=== PATIENT | female | born 1965 | race Caucasian/White ===

== ENCOUNTER 2019-12-09 09:33 | Emergency (ER) | payer BC, SELFPAY ==
[2019-12-09 09:51] VITALS: BP 137/86; PULSE 67; RESP 18; TEMP 37.1; O2SAT 100
--- NOTE | 2019-12-09 10:13 | ED.URI ---
HPI - URI/Sore Throat General Chief Complaint: Upper Respiratory Infection Stated Complaint: COUGH/EYE REDNESS/DRAINAGE/CHEST CONGESTION Time Seen by Provider: 12/09/19 10:13 Source: patient Mode of arrival: ambulatory Limitations: no limitations History of Present Illness HPI Narrative: A 54 y/o female, who is a nonsmoker/nondrinker, presents to with c/o left eye discharge for 2 days. Pt notes that she was recently taking care of one of her grandkids who tested positive for RSV. Pt does not wear contact lenses. Pt also c/o a cough with green mucous for 7 days. Pt has taken Aleve and Benadryl. She reports sinus congestion, a right earache, and sneezing, but denies a fever, a wheeze, edema, CP, and light sensitivity. Onset (ago): day(s) (2) Related Data Home Medications Medication Instructions Recorded Confirmed naproxen [Naprosyn] 500 mg PO BID 12/09/19 12/09/19 Allergies Allergy/AdvReac Type Severity Reaction Status Date / Time sulfamethoxazole Allergy Mild Hives Unverified 12/09/19 09:50 trimethoprim Allergy Mild Hives Unverified 12/09/19 09:50 Sulfa (Sulfonamide Allergy Unknown Hives Verified 12/09/19 09:50 Antibiotics) Review of Systems Review of Systems: Narrative: The patient has been informed that they may have pre-hypertension or Hypertension based on a BP reading in the department. I recommend that the patient call the primary care provider listed on their discharge instructions or a physician of their choice this week to arrange follow up for further evaluation of possible pre-hypertension or Hypertension General/Constitutional: Denies: weight loss,fever Eyes: Reports: left eye discharge; Denies: light sensitivity Ears/Nose/Throat: Reports: sinus congestion, right earache, sneezing; Denies: Epistaxis,ear discharge Respiratory: Reports: cough with green mucous; Denies: Hemoptysis, wheeze Cardiovascular: Denies: edema, CP Gastrointestinal: Denies: Vomiting, Bleeding-rectal Skin: Denies: Lumps, eruption Neurologic: Denies: Focal Weakness,Sz Hematologic: Denies: Petechiae/Purpura Psychiatric: Denies: Suicidal ideation All systems reviewed & are unremarkable except as noted in HPI and below [facility] Past Medical History Medical History (Updated 12/09/19 @ 10:28 by Kourtney Dougherty) Fibromyalgia Hypothyroid Left wrist fracture PVC (premature ventricular contraction) Surgical History Surgical History (Updated 12/09/19 @ 10:28 by Kourtney Dougherty) H/O tubal ligation Previous section Family History Family History Mother Hypertension Sibling Hypertension Family history of malignant neoplasm of breast in first degree relative Father Family history of human immunodeficiency virus infection, Onset Age: 52 Patient's father is Grandparent Diabetes mellitus Social History Social History Smoking status: Never smoker Alcohol intake: never Comments PCP: Dr. Logan At time of signature, agree with nursing past medical, surgical, social and family history. There is no relevant family history pertinent to the presenting complaint Exam Narrative: Exam Narrative: General Appearance: Well appearing, Well nourished EYE: PERRLA, R Conjunctiva clear, L sl inflamed Ears: Auditory canal normal, TM normal Nose: Rhinorrhea, Mucousal erythema Mouth/Throat: MM moist, Uvula midline, Pharyngeal erythema Neck: Supple, No adenopathy Respiratory: No respiratory distress, Breath sounds equal, Clear to auscultation Cardiovascular: RRR, No JVD Musculoskeletal: Non tender, Normal strength Skin: Warm, Dry Neurological: A&O x3, CN II-XII intact Psychiatric: Normal mood, Normal affect Course Vital Signs Vital signs: Vital Signs Temperature 98.8 F 12/09/19 09:51 Pulse Rate 67 12/09/19 09:51 Respiratory Rate 18 12/09/19 09:51 Blood Pressur
== END 2019-12-09 10:31 | disposition home or self-care (01) ==
PROVIDERS: Emergency Provider Emergency Medicine; PCP Family Medicine
DX: H10.32 Unspecified acute conjunctivitis, left eye (principal); M79.7 Fibromyalgia; E03.9 Hypothyroidism, unspecified
CPT/HCPCS: 87804; 99213; G0463

== ENCOUNTER 2021-07-15 11:23 | Emergency (ER) | payer BC, SELFPAY ==
--- NOTE | 2021-07-15 11:30 | ED.SKABFB ---
HPI - Skin/Abscess/Foreign Bdy General Chief complaint: Extremity Problem,Nontraumatic Stated complaint: lt big toe pos infection Time Seen by Provider: 07/15/21 11:30 Source: patient and RN notes reviewed History of Present Illness HPI narrative: Patient is a 56-year-old female who presents the urgent care with complaints of pain to the left great toe. Patient states she stubbed it approximately 5 days ago and it has been draining with increased redness and pain. Patient states that she has soaked the toe and soap and water and has placed ice on the toe. Patient denies fever, chills, nausea, vomiting. No other acute complaints. No acute distress noted. Patient aware of the plan of care. Some parts of this dictation were generated by voice recognition software and may contain typographical and/or grammatical inaccuracies. Related Data Allergies Allergy/AdvReac Type Severity Reaction Status Date / Time sulfamethoxazole Allergy Mild Hives Unverified 12/09/19 09:50 trimethoprim Allergy Mild Hives Unverified 12/09/19 09:50 Sulfa (Sulfonamide Allergy Unknown Hives Verified 12/09/19 09:50 Antibiotics) Review of Systems Review of Systems: CONSTITUTIONAL: Denies fever, chills, or sweats. EYES: Denies visual changes, redness, or discharge. ENT: Denies rhinorrhea, congestion, sore throat, or otalgia. CARDIOVASCULAR: Denies chest pain, palpitations, or edema. RESPIRATORY: Denies cough or dyspnea. GASTROINTESTINAL: Denies abdominal pain, nausea, vomiting, or diarrhea. GENITOURINARY: Denies dysuria or hematuria. SKIN: Reports of redness and swelling to the left great toe MUSCULOSKELETAL: Denies back pain, joint pain, or myalgia. NEUROLOGIC: Denies headache, numbness, or weakness. All other systems reviewed are negative, except as documented in HPI. [facility] Past Medical History Medical History (Updated 07/15/21 @ 12:03 by CASI Manriquez) Fibromyalgia Hypothyroid Left wrist fracture PVC (premature ventricular contraction) Surgical History Surgical History (Updated 12/09/19 @ 10:28 by Kourtney Dougherty) H/O tubal ligation Previous section Family History Family History Mother Hypertension Sibling Hypertension Family history of malignant neoplasm of breast in first degree relative Father Family history of human immunodeficiency virus infection, Onset Age: 52 Patient's father is Grandparent Diabetes mellitus Social History Social History Smoking status: Never smoker Alcohol intake: never Comments At the time of my signature, I reviewed and agree with the nursing past medical, surgical, social, and family history. There is no relevant family history pertinent to the patient complaint. Exam Narrative: GENERAL: This is a well-nourished, well-developed patient, in no apparent distress. HEAD: normocephalic, atraumatic. EYES: PERRL. Sclera clear/white. Vision is grossly intact. EARS: External ears normal NOSE: External nose normal with no obvious nasal discharge, nares without redness, no rhinorrhea. THROAT: Mucous membranes moist NECK: Neck supple CARDIOVASCULAR: Regular rate and rhythm without murmurs, gallops, or rubs. RESPIRATORY: Clear to auscultation. Breath sounds equal bilaterally. No wheezes, rales, or rhonchi. SKIN: Draining paronychia with surrounding erythema to the medial aspect of the left great toe with moderate tenderness NEURO: awake, alert, and oriented to person, place and time. There were no obvious focal neurologic abnormalities. EXTREMITIES: No clubbing, cyanosis, or edema. Course Vital Signs Vital signs: Vital Signs Temperature 98.5 F 07/15/21 11:33 Pulse Rate 83 07/15/21 11:33 Respiratory Rate 16 07/15/21 11:33 Blood Pressure 141/87 H 07/15/21 11:33 Pulse Oximetry 99 07/15/21 11:33 Temperature 98.5 F 07/15/21 11:33 Pulse Rate
[2021-07-15 11:33] VITALS: BP 141/87; PULSE 83; RESP 16; TEMP 36.9; O2SAT 99
== END 2021-07-15 12:10 | disposition home or self-care (01) ==
PROVIDERS: Emergency Provider Nurse Practitioner Family
DX: L03.032 Cellulitis of left toe (principal); M79.7 Fibromyalgia; E03.9 Hypothyroidism, unspecified
CPT/HCPCS: 99213; G0463

== ENCOUNTER 2022-11-10 19:35 | Emergency (ER) | payer BC, SELFPAY ==
--- NOTE | ~2022-11-10 | XR_ITS ---
EXAM: XR foot RT 2V DATE: 11/10/2022 20:32 HISTORY: Pain, blunt trauma to R.5th toe . COMPARISON: 06/08/2014. FINDINGS: Normal mineralization. Mildly displaced oblique fracture of the distal aspect of the right fifth proximal phalange, with possible intra-articular extension. No lytic or blastic lesion. Joint spaces are maintained. No erosion or periosteal change. Soft tissues within normal limits. IMPRESSION: Mildly displaced oblique fracture of the distal aspect of the right fifth proximal phalan ge, with possible intra-articular extension. Reviewed, dictated and finalized at location K. ELING ACCOUNTANT IMPRESSION: Mildly displaced oblique fracture of the distal aspect of the right fifth proximal phalange, with possible intra-articular extension.
[2022-11-10 19:55] VITALS: BP 150/90; PULSE 89; RESP 16; TEMP 36.9; O2SAT 97
--- NOTE | 2022-11-10 21:18 | ED.LOWEXIN ---
HPI - Extremity Injury (Lower) General Chief Complaint: Extremity Injury, Lower Stated Complaint: toe injury Time Seen by Provider: 11/10/22 20:51 Source: patient Mode of arrival: ambulatory Limitations: no limitations History of Present Illness HPI Narrative: 57-year-old otherwise healthy here with complaints of right foot pain. She states that she stubbed her foot against her bone few hours ago. complaint: foot injury Onset (ago): hour(s) (2) Type of Injury: blunt Place: home Severity: moderate Relieving factors: rest Exacerbating factors: weight bearing Context: direct blow Associated symptoms: swelling Related Data Allergies Allergy/AdvReac Type Severity Reaction Status Date / Time sulfamethoxazole Allergy Mild Hives Verified 11/10/22 20:52 trimethoprim Allergy Mild Hives Verified 11/10/22 20:52 Sulfa (Sulfonamide Allergy Unknown Hives Verified 11/10/22 20:52 Antibiotics) Review of Systems Review of Systems: All systems reviewed & are unremarkable except as noted in HPI and below Constitutional: Constitutional: Reports no additional constitutional complaints Eyes: Eyes: Reports no additional eye complaints ENT: Reports system reviewed and no additional complaints, except as documented Cardiovascular: Cardiovascular: Reports no additional cardiovascular complaints Respiratory: Respiratory: Reports no additional respiratory complaints Gastrointestinal: Gastrointestinal: Reports no additional gastrointestinal complaints Musculoskeletal: Musculoskeletal: Reports as per HPI Integumentary/Breasts: Skin/Breast: Reports system reviewed and no additional complaints, except as docu PMF[facility] Past Medical History Medical History Fibromyalgia Hypothyroid Left wrist fracture PVC (premature ventricular contraction) Surgical History Surgical History H/O tubal ligation Previous section Family History Family History Mother Hypertension Sibling Hypertension Family history of malignant neoplasm of breast in first degree relative Father Family history of human immunodeficiency virus infection, Onset Age: 52 Patient's father is Grandparent Diabetes mellitus Social History Social History Smoking status: Never smoker Alcohol intake: never Exam Narrative: GENERAL: Well-appearing, well-nourished, and in no acute distress. HEAD: Normocephalic, atraumatic. EYES: PERRLA and EOMI. NECK: Supple. CHEST: Clear to auscultation. No respiratory distress. HEART: Regular rate and rhythm. No murmur heard. Normal peripheral pulses. EXTREMITIES: Normal range of motion. No edema. Examination of the right foot shows very minimal soft tissue swelling of the fifth toe with mild discoloration. SKIN: Warm, dry, no rash. NEURO: No focal deficits. Alert and oriented x3. PSYCH: Normal mood and affect. Course Course Emergency Course: X-ray of the obtained showed a oblique fracture of the distal phalanx of the fifth toe. Inform patient about the results. We will give a postop boot. Recommended her to follow-up with either sweet dough mixer or with orthopedic doctor Vital Signs Vital signs: Vital Signs Temperature 36.9 C 11/10/22 19:55 Pulse Rate 89 11/10/22 19:55 Respiratory Rate 16 11/10/22 19:55 Blood Pressure 150/90 H 11/10/22 19:55 Pulse Oximetry 97 11/10/22 19:55 Oxygen Delivery Room Air 11/10/22 19:55 Temperature 36.9 C 11/10/22 19:55 Pulse Rate 89 11/10/22 19:55 Respiratory Rate 16 11/10/22 19:55 Blood Pressure 150/90 H 11/10/22 19:55 Pulse Oximetry 97 11/10/22 19:55 Oxygen Delivery Room Air 11/10/22 19:55 MDM - Extremity Injury (Lower) MDM Narrative Medical decision making narrative: 57-year-old with a history of subtota
== END 2022-11-10 22:17 | disposition home or self-care (01) ==
LOC: ANHED 21:36
PROVIDERS: Emergency Provider Family Medicine; PCP Family Medicine
DX: S92.511A Displaced fracture of proximal phalanx of right lesser toe(s), initial encounter for closed fracture (principal); M79.7 Fibromyalgia; E03.9 Hypothyroidism, unspecified; W22.8XXA Striking against or struck by other objects, initial encounter
CPT/HCPCS: 73620; 99284

== ENCOUNTER 2023-09-15 14:30 | Outpatient (RCR) | payer BC, SELFPAY ==
--- NOTE | 2023-08-11 16:58 | PTOPEVAL1 ---
Assessment and note entered by Ed Almazan Evaluation Information Assessment Status Evaluation Diagnosis dorsalgia, fibromyalgia Onset 07/26/23 Subjective Information Pt. reports having chronic upper back pain since she was 4. She reports that she has hx of fibromyalgia. She describes most pain in the area between the shoulder blades. She states that she has chronic knee and hip pain as well. She reports that her pain is constant. She states that pain is most intense in the morning and right before going to bed. She reports that her level of mobility varies throughout the day. She states that she has recently seen difficulty with prolonged standing activities. Pt. reports that she power walks 8-10 miles 6-7 days per week. She reports she does not resistive or core training. She states that she does get discouraged with her constant pain and notices that her pain effects her mobility. She reports that her goal is to reduce her pain. Reported Pain Level Pain Score 7,4: Self Report Assessment PT Clinical Summary Pt. is a 58 year old female who enters the clinic with back pain and fibromyalgia. Pt. presents with mild upper extremity and lower extremity weakness , impaired postural awareness and pain. Continued skilled PT is indicated in order to improve these areas to allow for improved comfort with all IADL performance. Plan of Care Interventions Electrical Stimulation,Hot Pack/Cold Pack,Manual Therapy,Neuro Re-education,Patient/Caregiver Educati,Therapeutic Activities,Therapeutic Exercise PT Services Indicated Yes Treatment Frequency and 1x/week x 5 visits Duration These treatments will address the objective and functional deficits as defined above. The patient will be advanced safely and appropriately in order for the patient to progress towards his/her prior level of function. Additional exercises will be introduced and as well as a comprehensive home exercise program upon discharge, if needed, ?to ensure carryover of functional gains achieved in the clinic. This treatment plan has been reviewed and agreement upon by the patient.
--- NOTE | 2023-08-11 16:59 | OPREHPOC ---
Outpatient Therapy Plan of Care This is a Multidisciplinary Plan of Care that may contain components documented by all disciplines (PT, OT, and ST.) PT Problem 1 PT Problem #1 Knowledge Deficit PT Goal 1 Goal Independent with a HEP addressing core strength and stability. Target Visit 2 PT Problem 2 PT Problem #2 Pain PT Goal 1 Goal Pt. will report pain levels at 5/10 at worst with all ADL's Target Visit 5 PT Problem 3 PT Problem #3 Impaired Strength PT Goal 1 Goal Pt. will increase proximal l.e. strength and proximal u.e. strength to 5/5 at all mm. groups Target Visit 5 PT Problem 4 PT Problem #4 Impaired Strength PT Goal 1 Goal Pt. will demonstrate ability to maintain the plank position for 1 minute indicating improved core strength.
--- NOTE | 2023-09-15 15:17 | PTOPDC ---
Assessment and note entered by Aaliyah Rausch, PT Evaluation Information Assessment Status Discharge Diagnosis dorsalgia, fibromyalgia Onset 07/26/23 Subjective Information have learned some good exercises to do at home; is power walking 8-10 miles, 5-6 days a week; saw dr last week and meds were changed some; Reported Pain Level Pain Score Self Report Additional Pain Score Comments pain range of 5-7/10 is normal, with flare ups 8-9 /10 at times; stretches ease her pain; taking new meds from pain management dr and they are helping some; trying to work on leveling the pain, with less flare ups; Assessment PT Clinical Summary Salome has received a total of 6 PT sessions. Compared to the initial evaluation: pain rating is the same; increase strength of trunk and hips; progress of HEP. The goals were partially met. Discharge PT . She is to continue with her home exercise program. Plan of Care PT Services Indicated No
== END 2023-09-16 15:04 | disposition home or self-care (01) ==
LOC: ANHPT 14:30
PROVIDERS: PCP Family Medicine; Visit Provider Anesthesiology Pain Medicine
DX: M54.9 Dorsalgia, unspecified (principal); M79.7 Fibromyalgia
CPT/HCPCS: 97110; 97112; 97161; 97530

== ENCOUNTER → 2023-10-04 12:05 | Outpatient (CLI) | payer BC, SELFPAY ==
--- NOTE | ~2023-10-04 | XR_ITS ---
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 TECHNIQUE: An anteroposterior view of the pelvis and 2 views of each hip were obtained. COMPARISON: None. FINDINGS: There is lumbar dextrocurvature and mild spondylosis. No fracture. There is mild osteoarthr itis of the hips. IMPRESSION: 1. Mild osteoarthritis of the hips. Reviewed, dictated and finalized at location E. ORK CONTRACT MANAGER
== END ==
PROVIDERS: PCP Nurse Practitioner; Visit Provider Nurse Practitioner
DX: M24.859 Other specific joint derangements of unspecified hip, not elsewhere classified (principal); M16.0 Bilateral primary osteoarthritis of hip
CPT/HCPCS: 73521

== ENCOUNTER 2023-10-30 10:16 | Emergency (ER) | payer BC, SELFPAY ==
--- NOTE | ~2023-10-30 | XR_ITS ---
EXAMINATION: XR chest 2V DATE: 10/30/2023 11:04 INDICATION: Cough. Shortness of breath. TECHNIQUE: Frontal and lateral views of the chest were obtained. COMPARISON: None. FINDINGS: There is no pneumonia, pleural effusion, or pneumothorax. The heart size is normal. IMPRESSION: 1. No acute cardiopulmonary disease. Reviewed, dictated and finalized at location A. SYSTEMS DEVELOPER
--- NOTE | 2023-10-30 10:25 | ED.URI ---
HPI - URI/Sore Throat General Chief Complaint: Upper Respiratory Infection Stated Complaint: chest cold,cough,fever Time Seen by Provider: 10/30/23 10:26 Source: patient Mode of arrival: ambulatory Limitations: no limitations History of Present Illness HPI Narrative: Salome is a 58-year-old female patient presenting to clinic today with complaints of chest cold, cough, and fever x8 days. Cough is productive bringing up green phlegm. Does report some mild shortness breath. Related Data Home Medications Medication Instructions Recorded Confirmed cholecalciferol (vitamin D3) 25 25 mcg PO DAILY 06/21/23 10/30/23 mcg (1,000 unit) capsule melatonin 5 mg capsule 5 mg PO .bedtime 06/21/23 10/30/23 Allergies Allergy/AdvReac Type Severity Reaction Status Date / Time sulfamethoxazole Allergy Mild Hives Verified 10/30/23 10:45 trimethoprim Allergy Mild Hives Verified 10/30/23 10:45 Sulfa (Sulfonamide Allergy Unknown Hives Verified 10/30/23 10:45 Antibiotics) Review of Systems Review of Systems: Pertinent positives per HPI. Patient denies any fever, chills, rash, headache, visual changes, dizziness, chest pain, palpitations, nausea, vomiting, diarrhea, constipation, abdominal pain, or any urinary issues. [facility] Past Medical History Medical History Fibromyalgia Hypothyroid Left wrist fracture PVC (premature ventricular contraction) Surgical History Surgical History H/O tubal ligation (~1998) History of bladder surgery (~2003) A & P repair History of endometrial ablation (~2003) Previous section (~1991) [place] teeth extracted Family History Family History Mother Hypertension Sibling Hypertension Family history of malignant neoplasm of breast in first degree relative Father Family history of human immunodeficiency virus infection, Onset Age: 52 Patient's father is Grandparent Diabetes mellitus Social History Social History Smoking status: Never smoker Alcohol intake: current Substance use: never Lack of Transportation: No Lack of Food: Never True Current Housing: I Have Housing Concerned About Future Housing: No Difficulty Paying Gas/Electric Bills: No Difficulty Paying for Meds: No Currently Unemployed: No Education: Bachelor's Degree Difficulty w/ Childcare or Family Care: No Living arrangements: with family 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 There is no relevant family history pertinent to the patient complaint. Exam Const: Other: General: Well-developed, well nourished, in no apparent distress Head: Normocephalic, atraumatic Eyes: Pupils equally round and reactive to light bilaterally, EOM intact, sclera and conjunctive clear, no discharge, lids normal Ears: TMs intact and clear, ear canals clear, no drainage, grossly hearing normal. Nose: Nares patent, clear nasal discharge, mild inflammation, no sinus tenderness. Mouth: Oropharynx without lesions or masses, good dentition, MMM. Neck: Supple, trachea midline, no enlargement of anterior or posterior cervical nodes, no thyroid masses or goiter palpable. Cardio: Regular rate and rhythm, s1 and s2 normal, no murmur appreciated. Resp: Clear to auscultation bilaterally anteriorly and posteriorly, no rhonchi, rales, wheezing or rubs Course Course Emergency Course: Portions of this record may have been created with voice recognition so
[2023-10-30 10:49] VITALS: BP 128/85; PULSE 82; RESP 16; TEMP 36.5; O2SAT 100
== END 2023-10-30 11:37 | disposition home or self-care (01) ==
PROVIDERS: Emergency Provider Nurse Practitioner Family; PCP Nurse Practitioner
DX: B34.9 Viral infection, unspecified (principal); J06.9 Acute upper respiratory infection, unspecified; M79.7 Fibromyalgia; E03.9 Hypothyroidism, unspecified
CPT/HCPCS: 71046; 99213; G0463

== ENCOUNTER → 2023-11-11 11:29 | Outpatient (CLI) | payer BC, SELFPAY ==
--- NOTE | ~2023-11-11 | MM_ITS ---
EXAMINATION: MM screening shlomo BI w rin HISTORY: Screening mammogram, family history of breast cancer in her sister. TECHNIQUE: Craniocaudal and mediolateral oblique 3-D tomosynthesis images were obtained and synthetic 2-D images were generated. CAD analysis was submitted and interpreted. COMPARISON: 10/06/2012 BREAST PARENCHYMAL COMPOSITION: There are scattered areas of fibroglandular density. FINDINGS: No suspicious mass, calcification, or architectural distortion are identified in either sandie ast to suggest malignancy. There has been no suspicious interval change. IMPRESSION: 1. No mammographic evidence of malignancy. 2. Recommend routine screening mammography in one year. BI-RADS Category 1: Negative Reviewed, dictated and finalized at location A. RVISOR MAJOR APPLIANCE ASSEMBLY
== END ==
PROVIDERS: PCP Nurse Practitioner; Visit Provider Registered Nurse
DX: Z12.31 Encounter for screening mammogram for malignant neoplasm of breast (principal)
CPT/HCPCS: 77063; 77067

== ENCOUNTER 2024-02-14 11:48 | Outpatient (CLI) | payer BC, SELFPAY ==
--- NOTE | ~2024-02-14 | XR_ITS ---
EXAMINATION: XR lumbar spine 6V w bending DATE: 02/14/2024 12:04 INDICATION: Low back pain. TECHNIQUE: 7 views of lumbar spine including flexion and extension views were obtained. COMPARISON: None. FINDINGS: There is 15 degrees dextroscoliosis of thoracolumbar spine. There is no abnormal motion wit h flexion or extension. Vertebral body heights are normal. There is mildly decreased disc height at L 3-L4 and L4-L5. There is multilevel facet joint osteoarthritis, severe on the right at L3-L4. IMPRESSION: 1. Mild lumbar spondylosis. 2. Thoracolumbar dextroscoliosis. Reviewed, dictated and finalized at location E.
--- NOTE | ~2024-02-14 | XR_ITS ---
EXAMINATION: XR sacroiliac joints min 3V DATE: 02/14/2024 12:04 INDICATION: Low back pain. TECHNIQUE: 3 views of the sacroiliac joints were obtained. COMPARISON: Pelvis radiograph 08/04/2023 FINDINGS: Bone alignment is normal. No fracture. There is mild osteoarthritis of the sacroiliac joint s. IMPRESSION: 1. Mild osteoarthritis of the sacroiliac joints. No evidence of inflammatory arthropathy. Reviewed, dictated and finalized at location E. IMPRESSION: 1. Mild osteoarthritis of the sacroiliac joints. No evidence of inflammatory ar thropathy.
== END 2024-02-14 11:49 ==
PROVIDERS: PCP Nurse Practitioner; Visit Provider Anesthesiology Pain Medicine
DX: M46.1 Sacroiliitis, not elsewhere classified (principal); M53.3 Sacrococcygeal disorders, not elsewhere classified; M47.896 Other spondylosis, lumbar region
CPT/HCPCS: 72114; 72202

== ENCOUNTER 2024-04-03 04:38 | Day surgery (SDC) | payer BC, SELFPAY ==
[2024-03-21 14:54] VITALS: BMI 25.5
--- NOTE | 2024-03-21 15:05 | PC.NURSE ---
Report to the Outpatient Waiting Room, entrance under the green pavilion located off [facility], at time _1330_ on date _[id number]_. Planned Procedure Time: _1430_. Time changes happen often and if your time is changed the preop area will call you the afternoon before. - You and your visitor will be asked to self-screen and do not enter if you have any COVID symptoms. - A mask is optional within the hospital at this time. Ok to eat breakfast and a light lunch. Nothing to eat or drink after 1230pm. Take the following medications with a SIP of water the morning of surgery: __Take all medications. DO NOT STOP ANY OF YOUR OTHER PRESCRIPTION MEDICATIONS PRIOR TO SURGERY ?EXCEPT THE FOLLOWING Medications to discontinue per physician None Date to take last dose Please no make-up, nail luxembourgish, hairspray, perfume, deodorant, or body powder the day of surgery. No jewelry (including any body piercings) or valuables the day of surgery, leave them at home. Please take a shower or bath the night before, or the morning of, surgery with an antibacterial soap. Wear comfortable, loose fitting clothing. - Jewelry must be removed prior to entering the operating room. Rings and piercings that are not removed may be cut off. - The hospital will not accept responsibility for valuables. - Please leave all valuables, including medications, at home the day of surgery. If you are going home after surgery, a licensed semi truck driver must drive you home. - NO public transportation without another adult if you receive anesthesia. - We recommend that an adult stay with you for 24 hours following discharge. - We also recommend that you do not drive, make important decision, drink alcoholic beverages, or take any drugs that were not prescribed by your health care provider for at least 24 hours after your discharge time. Follow any additional instructions given to you from your surgeon. If you or anyone in your household have experienced Covid symptoms in the past week, please notify your surgeon or the nurse liaison at the phone number below for possible testing. Telephone instructions given to __Kim___and asked if any additional questions and then verbalized understanding. Patient advised to call surgeon office or pre surgery nurse liaison [phone] if any additional questions.
--- NOTE | ~2024-04-03 | XR_ITS ---
EXAMINATION: XR fluoroscopy no charge DATE: 04/03/2024 15:27 INDICATION: Sacroiliitis. TECHNIQUE: 8 intraoperative fluoroscopic views of the sacroiliac joints were obtained. I was not pres ent. Fluoroscopy exposure time was 27 seconds. COMPARISON: None. FINDINGS: Images demonstrate needles in the sacroiliac joints bilaterally. IMPRESSION: 1. Bilateral sacroiliac joint injections. Reviewed, dictated and finalized at location A.
--- NOTE | 2024-04-03 07:38 | PM.HPGS ---
History of Present Illness History of Present Illness Consent: Risks, benefits, and alternatives have been discussed and questions answered. Patient agrees to proceed with procedure. Chief complaint: sacroiliitis, dorsalgia, chronic pain Narrative: Salome Cristobal is a 58 year old female with chronic, recalcitrant and disabling bilateral lumbosacral back pain secondary to chronic sacroiliitis with failure to respond to aggressive conservative measures including PT, oral and topical analgesics, opioid and nonopioid analgesics, rest, time and activity/behavioral modification over the past 1-2 years who presents for therapeutic bilateral intra-articular SI joint steroid injections under fluoroscopic guidance and with contrast control. Review of Systems Review of Systems: Patient denies any new infectious, allergic, cardiopulmonary, neurologic or constitutional symptoms or changes in activity tolerance or exercise capacity including new or progressive SOB/ROBERTSON, peripheral edema, productive cough, dysuria, nausea/vomiting, diarrhea, weight change, fevers/chills/night sweats, new or progressive neurologic deficit, cognitive or mood changes since last seen, except as documented in the HPI. All systems reviewed & are unremarkable except as noted in HPI and below PMFSH Past Medical History Medical History Fibromyalgia Hypothyroid Left wrist fracture PVC (premature ventricular contraction) Surgical History Surgical History H/O tubal ligation (~1998) History of bladder surgery (~2003) A & P repair History of endometrial ablation (~2003) Previous section (~1991) [place] teeth extracted Family History Family History Mother Hypertension Sibling Hypertension Family history of malignant neoplasm of breast in first degree relative Father Family history of human immunodeficiency virus infection, Onset Age: 52 Patient's father is Grandparent Diabetes mellitus Social History Social History Smoking status: Never smoker Alcohol intake: current Substance use: never Lack of Transportation: No Lack of Food: Never True Current Housing: I Have Housing Concerned About Future Housing: No Difficulty Paying Gas/Electric Bills: No Difficulty Paying for Meds: No Currently Unemployed: No Education: Bachelor's Degree Difficulty w/ Childcare or Family Care: No Living arrangements: with family 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 Gender identity (if verbalized by the patient): Female Sexual Orientation (if Verbalized by the Patient): Straight or Heterosexual Spiritual care concerns: No Meds Home Medications and Allergies Home Medications Medication Instructions Recorded Confirmed Type cholecalciferol (vitamin D3) 25 25 mcg PO DAILY 06/21/23 03/21/24 History mcg (1,000 unit) capsule melatonin 5 mg capsule 5 mg PO HS 06/21/23 03/21/24 History naproxen 500 mg tablet 500 mg PO BID PRN pain #180 tabs 06/28/23 03/21/24 Rx bupropion HCl 300 mg 24 hr tablet, 300 mg PO QAM #90 tabs 11/04/23 03/21/24 Rx extended release naltrexone 4.5 mg capsule See Rx Instructions PO .COMPLEX 02/01/24 03/21/24 Rx fibromyalgia 30 days #30 caps desvenlafaxine succinate 25 mg 25 mg PO DAILY fibromyalgia #63 02/14/24 03/21/24 Rx tablet,extended release 24 hr tabs levothyroxine 50 mcg tablet See Rx Instructions .Route 02/23/24 03/21/24 Rx .COMPLEX #90 tabs tizanidine 4 mg capsule See Rx Instructions .Route 03/03/24 03/21/24 Rx .COMPLEX #30 caps Allergies Allergy/AdvReac Type Severity Reaction Status Date / Time sulfamethoxazole Allergy Mild Hives Verified 03/21/24 14:51 trimethoprim Allergy Mild Hives V
--- NOTE | 2024-04-03 07:43 | WPDHPUPDATE1 ---
History and Physical Update Update Date/Time: 04/03/24 07:43 History and Physical has been reviewed, including an updated exam of the patient. There are NO changes in the patient's condition. Risks, benefits, and alternatives have been discussed and questions answered. Patient agrees to proceed with procedure.
--- NOTE | 2024-04-03 07:44 | W.PM.PROC2 ---
Procedure Note - Detailed Date of Procedure 04/03/24 Pre-op Diagnosis sacroiliitis, dorsalgia, chronic pain Post-op Diagnosis Same Procedure Performed Bilateral Sacroiliac Joint Steroid Injection under Fluoroscopic Guidance and with Contrast Control. Surgeon Josh East MD Anesthesia Local Description of Procedure INFORMED CONSENT: Risks, benefits and alternatives to the procedure were discussed in detail with the patient who expressed explicit understanding and consent to proceed. Patient was informed verbally and in written form regarding the risks associated with the procedure including the low risk of serious infection, bleeding/bruising, allergic reaction, nerve or organ injury, paralysis, procedural site pain or discomfort, worsening pain and/or mobility, failure to treat and/or disfigurement. The patient expressed explicit understanding and consent to proceed. All materials required for the procedure were available prior to procedure start. Site and side were marked prior to procedure and confirmed in the presence of the patient. PROCEDURE IN DETAIL: The patient was brought to the procedural suite and placed in the prone position. Patient was made comfortable with use of pillows under the head/chest, hips and ankles. Skin overlying the injection site on the affected side(s) was prepared broadly with ChloraPrep applicator and draped in a sterile manner. Aseptic technique was used throughout. The SI joint was identified in the AP view and contralateral oblique angulation with caudal tilt was utilized to optimize visualization of the inferior and medial joint line representing the posterior portion of the joint. Local anesthesia was established by infiltration with approximately 5 mL of 2% lidocaine via a 1-1/2 inch 27-gauge needle. A 22-gauge 3.5 inch Quincke spinal needle was advanced until the needle entered the inferior third of the joint space approximately 1cm cephalad from its most inferior point. In the AP view, 0.5 mL of IsoVue 300M contrast medium was injected after negative aspiration for CSF, blood or other bodily fluid, showing appropriate intra-articular spread of contrast without evidence of intravascular, perineural or intrathecal placement. A 1.5 mL solution containing 3mg betamethasone in 0.5% PF bupivacaine was injected after repeat negative aspiration. Appropriate spread of the injectate was confirmed with washout of previous injected contrast. No parasthesias were elicited. Needle was removed completely intact without difficulty. The same exact procedure was repeated for all remaining levels on the contralateral side, left SI joint, modified as necessary to accommodate for the new target location with identical findings/results and no evidence of complication. Images were saved and documented in the patient chart. Patient's skin was cleansed and sterile bandage applied. The patient tolerated the procedure well. The patient was transported to the recovery area in stable condition where they were observed for an appropriate amount of time prior to discharge, without evidence of complication. The patient was instructed to avoid excessive activity for the next 48 hours, including climbing and frequent use of stairs. Showers only for 48 hours. They were instructed not to drive or operate heavy machinery for 24 hours. They are to monitor for severe headaches, fevers, chills, night sweats, erythema/swelling at the site or any other signs of infection, bleeding/bruising, bowel or bladder changes as well as new pain, weakness or numbness in the upper or lower extremity. Should they notice these changes, they are instructed to call our office immediately or report directly to the nearest Emergency Department if no answer or if after posted office hours. COMPLICATIONS: None COMMENTS: None Complications No immediate complications Condition Stable Disposition Same day [facility] Billing Surgery - Charge Forward: Surgery Billing
[2024-04-03 13:29] VITALS: BP 144/79; PULSE 74; TEMP 36.6; O2SAT 98
[2024-04-03 15:02] VITALS: BP 131/79; PULSE 84; RESP 16; O2SAT 98
[2024-04-03 15:08] VITALS: BP 126/79; PULSE 64; RESP 16; O2SAT 97
[2024-04-03] MEDS: BETAMETHASONE SODIUM PHOSPHATE PF INJ 6 MG/ML VIAL INFILTRATE (15:10)
[2024-04-03] MEDS: LIDOCAINE HCL 1% PF INJ 5 ML VIAL INFILTRATE (15:11)
[2024-04-03] MEDS: BUPivacaine HCL 0.5% PF 30 ML VIAL 5 ML INFILTRATE (15:11)
== END 2024-04-03 15:40 | disposition home or self-care (01) ==
PROVIDERS: PCP Nurse Practitioner; Visit Provider Anesthesiology Pain Medicine
PROC: (CPT 27096; principal; 2024-04-03 14:30)
DX: M46.1 Sacroiliitis, not elsewhere classified (principal); M54.9 Dorsalgia, unspecified; G89.4 Chronic pain syndrome; M79.7 Fibromyalgia; E03.9 Hypothyroidism, unspecified; I49.3 Ventricular premature depolarization
CPT/HCPCS: 27096; 99199; Q9965

== ENCOUNTER 2024-05-01 02:43 | Day surgery (SDC) | payer BC, SELFPAY ==
[2024-04-14 14:54] VITALS: BMI 25.0
[2024-05-01 06:53] VITALS: BP 140/76; PULSE 72; RESP 17; TEMP 36.6; O2SAT 99
[2024-05-01] MEDS: LACTATED RINGERS 1,000 ML 150 ML IV CONT (07:03)
--- NOTE | 2024-05-01 07:20 | WPDANESEPPF ---
Anes - Initial Pre Proc Eval Procedure: Operation Date: 05/01/24 08:00 Proposed Procedures p Colonoscopy - Chalino Morris MD Date/Time: 05/01/24 07:20 Surgeon: Chalino Morris MD Pre Op Diagnosis: Other fecal abnormalities Patient Data Age: 58 Gender: F Height: 1.68 m Weight: 68.6 kg Last Vital Signs Temp 98 F 05/01/24 06:53 Pulse 72 05/01/24 06:53 Resp 17 05/01/24 06:53 BP 140/76 05/01/24 06:53 Pulse Ox 99 05/01/24 06:53 O2 Del Method Room Air 05/01/24 06:53 Allergies Allergy/AdvReac Type Severity Reaction Status Date / Time sulfamethoxazole Allergy Mild Hives Verified 05/01/24 06:50 trimethoprim Allergy Mild Hives Verified 05/01/24 06:50 Sulfa (Sulfonamide Allergy Unknown Hives Verified 05/01/24 06:50 Antibiotics) Home Medications Medication Instructions Recorded Confirmed Type cholecalciferol (vitamin D3) 25 25 mcg PO DAILY 06/21/23 04/14/24 History mcg (1,000 unit) capsule melatonin 5 mg capsule 5 mg PO HS 06/21/23 04/14/24 History naproxen 500 mg tablet 500 mg PO BID PRN pain #180 tabs 06/28/23 04/14/24 Rx naltrexone 4.5 mg capsule See Rx Instructions PO .COMPLEX 02/01/24 04/14/24 Rx fibromyalgia 30 days #30 caps levothyroxine 50 mcg tablet See Rx Instructions .Route 02/23/24 04/14/24 Rx .COMPLEX #90 tabs desvenlafaxine succinate 50 mg 50 mg PO DAILY fibromyalgia #90 04/07/24 04/14/24 Rx tablet,extended release 24 hr tabs tizanidine 4 mg capsule See Rx Instructions .Route 04/07/24 04/14/24 Rx .COMPLEX #30 caps bupropion HCl 300 mg 24 hr tablet, See Rx Instructions .Route 04/24/24 05/01/24 Rx extended release .COMPLEX #90 tabs Patient hx anesthesia problems: none Family hx anesthesia problems: none Results Review: All pre-operative results and documents have been reviewed as part of the pre-operative evaluation. [facility] Past Medical History Medical History Fibromyalgia Hypothyroid Left wrist fracture PVC (premature ventricular contraction) Surgical History Surgical History H/O tubal ligation (~1998) History of bladder surgery (~2003) A & P repair History of endometrial ablation (~2003) Previous section (~1991) [place] teeth extracted Family History Family History Mother Hypertension Sibling Hypertension Family history of malignant neoplasm of breast in first degree relative Father Family history of human immunodeficiency virus infection, Onset Age: 52 Patient's father is Grandparent Diabetes mellitus Social History Social History Smoking status: Never smoker Alcohol intake: current Substance use: never Substance use type: does not use Do You Feel Safe in your Home?: Yes Lack of Transportation: No Lack of Food: Never True Current Housing: I Have Housing Concerned About Future Housing: No Difficulty Paying Gas/Electric Bills: No Difficulty Paying for Meds: No Currently Unemployed: No Education: Bachelor's Degree Difficulty w/ Childcare or Family Care: No Living arrangements: other Additional living arrangements comments: with sp 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
--- NOTE | 2024-05-01 08:03 | PM.HPGS ---
History of Present Illness History of Present Illness Consent: Risks, benefits, and alternatives have been discussed and questions answered. Patient agrees to proceed with procedure. Chief complaint: Other fecal abnormalities Narrative: Salome Cristobal is a 58 year old female here because + cologuard Review of Systems Review of Systems: All systems reviewed & are unremarkable except as noted in HPI and below PMFSH Past Medical History Medical History Fibromyalgia Hypothyroid Left wrist fracture PVC (premature ventricular contraction) Surgical History Surgical History H/O tubal ligation (~1998) History of bladder surgery (~2003) A & P repair History of endometrial ablation (~2003) Previous section (~1991) [place] teeth extracted Family History Family History Mother Hypertension Sibling Hypertension Family history of malignant neoplasm of breast in first degree relative Father Family history of human immunodeficiency virus infection, Onset Age: 52 Patient's father is Grandparent Diabetes mellitus Social History Social History Smoking status: Never smoker Alcohol intake: current Substance use: never Substance use type: does not use Do You Feel Safe in your Home?: Yes Lack of Transportation: No Lack of Food: Never True Current Housing: I Have Housing Concerned About Future Housing: No Difficulty Paying Gas/Electric Bills: No Difficulty Paying for Meds: No Currently Unemployed: No Education: Bachelor's Degree Difficulty w/ Childcare or Family Care: No Living arrangements: other Additional living arrangements comments: with sp 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 Gender identity (if verbalized by the patient): Female Sexual Orientation (if Verbalized by the Patient): Straight or Heterosexual Spiritual care concerns: No Meds Home Medications and Allergies Home Medications Medication Instructions Recorded Confirmed Type cholecalciferol (vitamin D3) 25 25 mcg PO DAILY 06/21/23 04/14/24 History mcg (1,000 unit) capsule melatonin 5 mg capsule 5 mg PO HS 06/21/23 04/14/24 History naproxen 500 mg tablet 500 mg PO BID PRN pain #180 tabs 06/28/23 04/14/24 Rx naltrexone 4.5 mg capsule See Rx Instructions PO .COMPLEX 02/01/24 04/14/24 Rx fibromyalgia 30 days #30 caps levothyroxine 50 mcg tablet See Rx Instructions .Route 02/23/24 04/14/24 Rx .COMPLEX #90 tabs desvenlafaxine succinate 50 mg 50 mg PO DAILY fibromyalgia #90 04/07/24 04/14/24 Rx tablet,extended release 24 hr tabs tizanidine 4 mg capsule See Rx Instructions .Route 04/07/24 04/14/24 Rx .COMPLEX #30 caps bupropion HCl 300 mg 24 hr tablet, See Rx Instructions .Route 04/24/24 05/01/24 Rx extended release .COMPLEX #90 tabs Allergies Allergy/AdvReac Type Severity Reaction Status Date / Time sulfamethoxazole Allergy Mild Hives Verified 05/01/24 06:50 trimethoprim Allergy Mild Hives Verified 05/01/24 06:50 Sulfa (Sulfonamide Allergy Unknown Hives Verified 05/01/24 06:50 Antibiotics) Vital Signs Vital Signs - 24 hr 05/01/24 06:53 Temperature 98 F Pulse Rate 72 Respiratory Rate 17 Blood Pressure 140/76 Pulse Oximetry 99 Oxygen Delivery Room Air Exam Const: General: comfortable and no acute distress HENMT: Face/Nose/Sinus: Normal nares present Eyes: General: appearance normal, both eyes and all related structures Neck: Neck: no JVD Resp: Auscultation: clear to auscultation bilaterally Cardio: Rate: regular rate Rhythm: regular rhythm GI: Inspection: non-distended GI Palp: Yes Soft to palpation Skin: General skin exam: normal color Neuro: General: ga
[2024-05-01 08:23] VITALS: BP 105/58; PULSE 57; RESP 18; O2SAT 100
[2024-05-01 08:33] VITALS: BP 113/75; PULSE 70; RESP 18; O2SAT 100
[2024-05-01 08:43] VITALS: BP 133/83; PULSE 56; RESP 18; O2SAT 100
== END 2024-05-01 08:51 | disposition home or self-care (01) ==
PROVIDERS: PCP Nurse Practitioner; Visit Provider Internal Medicine Gastroenterology
PROC: 0DJD8ZZ Inspection of Lower Intestinal Tract, Via Natural or Artificial Opening Endoscopic (ICD-10-PCS; CPT 45378; principal; 2024-05-01 08:00)
DX: K64.8 Other hemorrhoids (principal); M79.7 Fibromyalgia; E03.9 Hypothyroidism, unspecified
CPT/HCPCS: 45378; J2704; J7120

== ENCOUNTER 2024-06-02 17:50 | Emergency (ER) | payer BC, SELFPAY ==
[2024-06-02 18:28] VITALS: BP 144/91; PULSE 91; RESP 18; TEMP 36.4; O2SAT 99
--- NOTE | 2024-06-02 18:44 | ED.ANIMALBIT ---
HPI - Animal Bite General Chief Complaint: Animal Bite Stated Complaint: Dog Bite Time Seen by Provider: 06/02/24 18:36 Source: patient Mode of arrival: ambulatory Limitations: no limitations History of Present Illness HPI narrative: Patient is a 59 y/o female who presents to the ED with c/o dog bite to her L calf. Patient reports she was on a walk in her neighborhood this evening when she was bit by an aggressive neighborhood dog in her left calf. She is unsure if the dog is up-to-date on its vaccines. She did contact [place] [employer] and filed a report against the dog. She notes that this dog has bitten someone in the neighborhood before. Sustained small puncture wound to left calf. No other injuries. Tetanus up-to-date. Related Data Home Medications Medication Instructions Recorded Confirmed cholecalciferol (vitamin D3) 25 25 mcg PO DAILY 06/21/23 04/14/24 mcg (1,000 unit) capsule melatonin 5 mg capsule 5 mg PO HS 06/21/23 04/14/24 Allergies Allergy/AdvReac Type Severity Reaction Status Date / Time sulfamethoxazole Allergy Mild Hives Verified 05/01/24 06:50 trimethoprim Allergy Mild Hives Verified 05/01/24 06:50 Sulfa (Sulfonamide Allergy Unknown Hives Verified 05/01/24 06:50 Antibiotics) Review of Systems Review of Systems: CONSTITUTIONAL: Denies fever, chills, or sweats. MUSCULOSKELETAL: See HPI. NEUROLOGIC: Denies headache, dizziness, numbness, or weakness. All systems reviewed & are unremarkable except as noted in HPI and below PMFSH Past Medical History Medical History Fibromyalgia Hypothyroid Left wrist fracture PVC (premature ventricular contraction) Surgical History Surgical History H/O tubal ligation (~1998) History of bladder surgery (~2003) A & P repair History of endometrial ablation (~2003) Previous section (~1991) [place] teeth extracted Family History Family History Mother Hypertension Sibling Hypertension Family history of malignant neoplasm of breast in first degree relative Father Family history of human immunodeficiency virus infection, Onset Age: 52 Patient's father is Grandparent Diabetes mellitus Social History Social History Smoking status: Never smoker Alcohol intake: current Substance use: never Substance use type: does not use Do You Feel Safe in your Home?: Yes Lack of Transportation: No Lack of Food: Never True Current Housing: I Have Housing Concerned About Future Housing: No Difficulty Paying Gas/Electric Bills: No Difficulty Paying for Meds: No Currently Unemployed: No Education: Bachelor's Degree Difficulty w/ Childcare or Family Care: No Living arrangements: other Additional living arrangements comments: with sp 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 HEAD: Normocephalic, atraumatic. RESPIRATORY: Airway patent, respirations nonlabored. CARDIOVASCULAR: Regular rate and rhythm MUSCULOSKELETAL: Moves all extremities. No gross deformities. SKIN: Warm, dry, normal color. 0.5 cm laceration/puncture wound to left calf, mild surrounding contusion/ecchymosis forming. Mild tenderness. No significant active bleeding. Sensation intact throughout leg. NEURO: A&O X3. Speech clear. Cranial nerves II-XII grossly intact. Steady gait. No ataxic movements. PSYCHIATRIC: Appropriate mood and affect. Normal interaction. Course Vital Signs
[2024-06-02] MEDS: AMOXICILLIN/CLAVULANATE K 875-125 MG TAB 1 TABLET PO (18:58)
[2024-06-02 19:03] VITALS: BP 132/76; PULSE 76; RESP 16; TEMP 36.7; O2SAT 100
== END 2024-06-02 19:06 | disposition home or self-care (01) ==
LOC: ANHED 19:03
PROVIDERS: Emergency Provider Physician Assistant; PCP Nurse Practitioner
DX: S81.852A Open bite, left lower leg, initial encounter (principal); M79.7 Fibromyalgia; E03.9 Hypothyroidism, unspecified; Z79.899 Other long term (current) drug therapy; W54.0XXA Bitten by dog, initial encounter
CPT/HCPCS: 99283; A9270

== ENCOUNTER 2024-06-06 10:36 | Outpatient (CLI) | payer BC, SELFPAY ==
--- NOTE | ~2024-06-06 | XR_ITS ---
XR tibia fibula LT 2V Ordering provider: Beba Salas POP SINGER-C History: . R60.9 - Edema, unspecified . Comparison: None. FINDINGS: BONES: No acute fracture or dislocation. JOINT SPACES: Normal. SOFT TISSUES: Normal. IMPRESSION: No acute osseous abnormality left leg. Reviewed, dictated and finalized at location A.
== END 2024-06-06 10:37 ==
LOC: GOSHIMG 10:37
PROVIDERS: PCP Nurse Practitioner; Visit Provider Nurse Practitioner
DX: R60.9 Edema, unspecified (principal)
CPT/HCPCS: 73590

== ENCOUNTER 2024-07-24 02:45 | Day surgery (SDC) | payer BC, SELFPAY ==
[2024-07-17 08:15] VITALS: BMI 24.7
--- NOTE | 2024-07-17 08:16 | PC.NURSE ---
Report to the Outpatient Waiting Room, entrance under the green pavilion located off [facility], at time _1115_ on date _[id number]_. Planned Procedure Time: _1215_.? Time changes happen often and if your time is changed the preop area will call you the afternoon before. - You and your visitor will be asked to self-screen and do not enter if you have any COVID symptoms. Please call surgeon if you need to reschedule. - A mask is optional within the hospital at this time. OK to eat light breakfast. Nothing to eat or drink after 1015am. Take only the following medications with a SIP of water on the morning of surgery: ___Take medications morning of surgery. DO NOT STOP ANY OF YOUR OTHER PRESCRIPTION MEDICATIONS PRIOR TO SURGERY EXCEPT THE FOLLOWING Medications to discontinue per physician ___None Please no make-up, nail ukrainian, hairspray, perfume, deodorant, or body powder the day of surgery.? No jewelry (including any body piercings) or valuables the day of surgery, leave them at home.? Please take a shower or bath the night before, or the morning of, surgery with an antibacterial soap.? Wear comfortable, loose fitting clothing.? - Jewelry must be removed prior to entering the operating room.? Rings and piercings that are not removed may be cut off. - The hospital will not accept responsibility for valuables.? - Please leave all valuables, including medications, at home the day of surgery. OK to drive self home. Follow any additional instructions given to you from your surgeon. Telephone instructions given to __Kim___and asked if any additional questions and then verbalized understanding. Patient advised to call surgeon office or pre surgery nurse liaison [phone] if any additional questions.
--- NOTE | ~2024-07-24 | XR_ITS ---
EXAMINATION: XR fluoroscopy no charge DATE: 07/24/2024 11:38 INDICATION: Left L3, L4 and L5 medial branch/dorsal ramus nerve blocks TECHNIQUE: 4 fluoroscopic images of the lower lumbar spine were obtained during procedure performed anand East. Radiologist was not present for the imaging or procedure. The amount of fluoroscopy time used during this procedure was 0.3 minutes. Total DAP was 1.398 Gycm^2 COMPARISON: None. FINDINGS/IMPRESSION: Fluoroscopic images demonstrate needle tips and injected contrast along the posterior superior margin of the junction of the transverse processes and pedicles bilaterally at L4, L5 and S1. See procedure note for further detail. Reviewed, dictated and finalized at location A.
--- NOTE | 2024-07-24 06:29 | PM.HPGS ---
History of Present Illness History of Present Illness Consent: Risks, benefits, and alternatives have been discussed and questions answered. Patient agrees to proceed with procedure. Chief complaint: lumbosacral spondylosis, chronic low back pain Narrative: Salome Cristobal is a 59 year old female with chronic, recalcitrant and disabling left lumbosacral back pain secondary to degenerative spondylosis with failure to respond to aggressive conservative measures including PT, oral and topical analgesics, opioid and nonopioid analgesics, rest, time and activity/behavioral modification over the past 1-2 years who presents for diagnostic/prognostic medial branch blocks(#1) under fluoroscopic guidance and with contrast control. Review of Systems Review of Systems: Patient denies any new infectious, allergic, cardiopulmonary, neurologic or constitutional symptoms or changes in activity tolerance or exercise capacity including new or progressive SOB/ROBERTSON, peripheral edema, productive cough, dysuria, nausea/vomiting, diarrhea, weight change, fevers/chills/night sweats, new or progressive neurologic deficit, cognitive or mood changes since last seen, except as documented in the HPI. All systems reviewed & are unremarkable except as noted in HPI and below PMFSH Past Medical History Medical History Fibromyalgia Hypothyroid Left wrist fracture PVC (premature ventricular contraction) Surgical History Surgical History H/O tubal ligation (~1998) History of bladder surgery (~2003) A & P repair History of endometrial ablation (~2003) Previous section (~1991) [place] teeth extracted Family History Family History Mother Hypertension Sibling Hypertension Family history of malignant neoplasm of breast in first degree relative Father Family history of human immunodeficiency virus infection, Onset Age: 52 Patient's father is Grandparent Diabetes mellitus Social History Social History Smoking status: Never smoker Alcohol intake: current Substance use: never Substance use type: does not use Do You Feel Safe in your Home?: Yes Lack of Transportation: No Lack of Food: Never True Current Housing: I Have Housing Concerned About Future Housing: No Difficulty Paying Gas/Electric Bills: No Difficulty Paying for Meds: No Currently Unemployed: No Education: Bachelor's Degree Difficulty w/ Childcare or Family Care: No Living arrangements: with family Additional living arrangements comments: with sp 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 Gender identity (if verbalized by the patient): Female Sexual Orientation (if Verbalized by the Patient): Straight or Heterosexual Spiritual care concerns: No Meds Home Medications and Allergies Home Medications Medication Instructions Recorded Confirmed Type cholecalciferol (vitamin D3) 25 25 mcg PO DAILY 06/21/23 07/17/24 History mcg (1,000 unit) capsule melatonin 5 mg capsule 5 mg PO HS 06/21/23 07/17/24 History naproxen 500 mg tablet 500 mg PO BID PRN pain #180 tabs 06/28/23 07/17/24 Rx levothyroxine 50 mcg tablet See Rx Instructions .Route 02/23/24 07/17/24 Rx .COMPLEX #90 tabs bupropion HCl 300 mg 24 hr tablet, See Rx Instructions .Route 04/24/24 07/17/24 Rx extended release .COMPLEX #90 tabs naltrexone 4.5 mg capsule See Rx Instructions PO .COMPLEX 05/06/24 07/17/24 Rx fibromyalgia 30 days #30 caps tizanidine 4 mg capsule See Rx Instructions .Route 06/30/24 07/17/24 Rx .COMPLEX #30 caps desvenlafaxine succinate 50 mg 50 mg PO DAILY fibromyalgia #90 07/11/24 07/17/24 Rx tablet,extended release 24 hr tabs Allergies Allergy/AdvReac Type S
--- NOTE | 2024-07-24 06:32 | WPDHPUPDATE1 ---
History and Physical Update Update Date/Time: 07/24/24 06:32 History and Physical has been reviewed, including an updated exam of the patient. There are NO changes in the patient's condition. Risks, benefits, and alternatives have been discussed and questions answered. Patient agrees to proceed with procedure.
--- NOTE | 2024-07-24 06:33 | W.PM.PROC2 ---
Procedure Note - Detailed Date of Procedure 07/24/24 Pre-op Diagnosis lumbosacral spondylosis, chronic low back pain Post-op Diagnosis Same Procedure Performed Diagnostic left Lumbar Medial Branch/Dorsal Ramus Blocks at L3, L4, L5 Treating the Ipsilateral L4-5, L5-S1 Facet Joints Under Fluoroscopic Guidance and with Contrast Control. (2 levels blocked). Surgeon Josh East MD [place] Wire[place] None. Anesthesia Local Description of Procedure INFORMED CONSENT: Risks, benefits and alternatives to the procedure were discussed in detail with the patient who expressed explicit understanding and consent to proceed. Patient was informed verbally and in written form regarding the risks associated with the procedure including the low risk of serious infection, bleeding/bruising, allergic reaction, nerve or organ injury, paralysis, procedural site pain or discomfort, worsening pain and/or mobility, failure to treat and/or disfigurement. The patient expressed explicit understanding and consent to proceed. All materials required for the procedure were available prior to procedure start. Site and side were marked prior to procedure and confirmed in the presence of the patient. PROCEDURE IN DETAIL: The patient was brought to the procedural suite and placed in the prone position. Patient was made comfortable with use of pillows under the head/chest, hips and ankles. Skin overlying the injection site on the affected side(s) was prepared broadly with ChloraPrep applicator and draped in a sterile manner. Aseptic technique was used throughout. The endplates of the vertebral bodies at the site(s) of interest were aligned in the AP view. Ipsilateral oblique angulation was utilized to optimize visualization of the intersection between the superior articulating process and transverse process at each target site. Local anesthesia was established by infiltration with approximately 5 mL of 1% lidocaine via a 1-1/2 inch 27-gauge needle. A 25-gauge 3.5 inch Quincke spinal needle was advanced until the needle tip contacted periosteum at the target site, left L3. Lateral view was utilized to confirm the appropriate placement of the needle tip just anterior to the facet line and superior to the pedicle. In the Lateral view, 0.25 mL of Omnipaque 300 contrast medium was injected after negative aspiration for CSF, blood or other bodily fluid, showing appropriate extra-articular spread of contrast without evidence of intravascular, foraminal or intrathecal placement. A 0.5 mL solution of 0.5% PF bupivacaine was injected after negative repeat aspiration. Appropriate spread of the injectate was confirmed with washout of previously injected contrast. No parasthesias were elicited. Needle was removed completely intact without difficulty. The same exact procedure was repeated for all remaining levels on the ipsilateral side, left L4, L5 medial branches/dorsal ramus, modified as necessary to accommodate for the new target location with identical findings and results and no evidence of complication. Images were saved and documented in the patient chart. Patient's skin was cleaned and sterile bandage applied. The patient tolerated the procedure well. The patient was transported to the recovery area in stable condition where they were observed for an appropriate amount of time prior to discharge, without evidence of complication. Patient was instructed on the appropriate completion of a pain diary over the next 12-24 hours. The patient was instructed to avoid excessive activity for the next 48 hours, including climbing and frequent use of stairs. Showers only for 48 hours. They were instructed not to drive or operate heavy machinery for 24 hours. They are to monitor for severe headaches, fevers, chills, night sweats, erythema/swelling at the site or any other signs of infection, bleeding/bruising, bowel or bladder changes as well as new pain, weakness or numbness in the upper or lower extremity. Should they not
[2024-07-24 10:36] VITALS: BMI 24.7
[2024-07-24 10:37] VITALS: BP 143/83; PULSE 71; RESP 18; TEMP 36.6; O2SAT 98
[2024-07-24 11:19] VITALS: BP 144/82; PULSE 68; RESP 20; O2SAT 98
[2024-07-24] MEDS: BUPivacaine HCL 0.5% 10 ML AMP INFILTRATE (11:27)
[2024-07-24 11:28] VITALS: BP 126/80; PULSE 63; RESP 18; O2SAT 98
[2024-07-24] MEDS: LIDOCAINE HCL 1% PF INJ 5 ML VIAL 10 ML INFILTRATE (11:28)
[2024-07-24 11:34] VITALS: BP 130/84; PULSE 66; RESP 12
== END 2024-07-24 11:46 | disposition home or self-care (01) ==
PROVIDERS: PCP Nurse Practitioner; Visit Provider Anesthesiology Pain Medicine
PROC: (CPT 64493; principal; 2024-07-24 12:45)
DX: M47.817 Spondylosis without myelopathy or radiculopathy, lumbosacral region (principal); E03.9 Hypothyroidism, unspecified; I49.3 Ventricular premature depolarization; G89.29 Other chronic pain; Z79.1 Long term (current) use of non-steroidal anti-inflammatories (NSAID); Z98.890 Other specified postprocedural states; Z98.51 Tubal ligation status; Z80.3 Family history of malignant neoplasm of breast
CPT/HCPCS: 64493; 64494; 99199; Q9965

== ENCOUNTER 2024-08-29 10:54 | Emergency (ER) | payer BC, SELFPAY ==
--- NOTE | ~2024-08-29 | XR_ITS ---
EXAMINATION: XR chest 2V DATE: 08/29/2024 11:46 INDICATION: Cough. TECHNIQUE: Frontal and lateral views of the chest were obtained. COMPARISON: Chest 2 views 10/30/2023 FINDINGS: There is no pneumonia, pleural effusion, or pneumothorax. The heart size is normal. IMPRESSION: 1. No acute cardiopulmonary disease. Reviewed, dictated and finalized at location B.
[2024-08-29 11:22] VITALS: BP 135/94; PULSE 69; RESP 18; TEMP 36.7; O2SAT 100
--- NOTE | 2024-08-29 11:31 | ED.URI ---
HPI - URI/Sore Throat General Chief Complaint: Upper Respiratory Infection Stated Complaint: cough,sob Source: patient Mode of arrival: ambulatory Limitations: no limitations History of Present Illness HPI Narrative: 59 y/o female presented for c/o cough and chest congestion for one week. Endorses chest feels tight with deep breaths. Starting to have left ear pain. Takes naproxen for chronic pain. Denies sob, wheezing, n/v/d/f/c. Related Data Home Medications Medication Instructions Recorded Confirmed cholecalciferol (vitamin D3) 25 25 mcg PO DAILY 06/21/23 08/29/24 mcg (1,000 unit) capsule melatonin 5 mg capsule 5 mg PO HS 06/21/23 08/29/24 Allergies Allergy/AdvReac Type Severity Reaction Status Date / Time sulfamethoxazole Allergy Mild Hives Verified 08/29/24 11:38 trimethoprim Allergy Mild Hives Verified 08/29/24 11:38 Sulfa (Sulfonamide Allergy Unknown Hives Verified 08/29/24 11:38 Antibiotics) Review of Systems Review of Systems: CONSTITUTIONAL: Denies body aches, fever, chills, or sweats. EYES: Denies visual changes, redness, or discharge. ENT: Denies rhinorrhea, congestion, sore throat, reports otalgia. CARDIOVASCULAR: Denies chest pain, palpitations, or edema. RESPIRATORY: Reports cough, denies sob, wheezing. GASTROINTESTINAL: Denies abdominal pain, nausea, vomiting, or diarrhea. MUSCULOSKELETAL: Denies back pain, joint pain, or myalgia. NEUROLOGIC: Denies headache, numbness, tingling, or weakness. All systems reviewed & are unremarkable except as noted in HPI and below PMFSH Past Medical History Medical History Fibromyalgia Hypothyroid Left wrist fracture PVC (premature ventricular contraction) Spondylosis Surgical History Surgical History H/O tubal ligation (~1998) History of bladder surgery (~2003) A & P repair History of endometrial ablation (~2003) Previous section (~1991) [place] teeth extracted Family History Family History Mother Hypertension Sibling Hypertension Family history of malignant neoplasm of breast in first degree relative Father Family history of human immunodeficiency virus infection, Onset Age: 52 Patient's father is Grandparent Diabetes mellitus Social History Social History Smoking status: Never smoker Alcohol intake: current Alcohol use details: during holidays a glass of wine Substance use: never Substance use type: does not use Do You Feel Safe in your Home?: Yes Lack of Transportation: No Lack of Food: Never True Current Housing: I Have Housing Concerned About Future Housing: No Difficulty Paying Gas/Electric Bills: No Difficulty Paying for Meds: No Currently Unemployed: No Education: Bachelor's Degree Difficulty w/ Childcare or Family Care: No Living arrangements: with family Additional living arrangements comments: with sp 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 Please see nursing chart for further information. There is no relevant family history pertinent to the presenting complaint Exam Narrative: GENERAL: Well-appearing EYES: EOMI. No redness or drainage. Conjunctivae normal. ENT: Mucous membranes pink and moist. No rhinorrhea. TMs normal bilaterally. Throat normal. Uvula midline. NECK: Normal AROM. Supple. CHEST: No respiratory distress. Slightly coarse right base otherwise Lungs clear. HEART: Regular rate and rhythm. No murmur appreciated. ABDOMEN: Soft, nontender, nondistended, normal active bowel sounds. SKIN: Warm, dry. Capillary refill normal. Normal skin turgor. NEURO: Alert and oriented x3. Gait steady. PSYCH: Normal affect. Course Course Emergency Course: Patient is aware of diagnosis, understands and agrees to treatment plan. Anticipatory guidance given. Patient agrees to follow-up as directed and is aware of reasons to seek care at the emergency department. Portions of this record may have been created with voice recognition software Level of Care: Express Care Visit Vital Signs Vital signs: Vital Signs Temperature 98.1 F 08/29/24 11:22 Pulse Rate 69 08/29/24 11:22 Respiratory Rate 18 08/29/24 11:22 Blood Pressure 135/94 H 08/29/24 11:22 Pulse Oximetry 100 08/29/24 11:22 Oxygen Delivery Room Air 08/29/24 11:22 Temperature 98.1 F 08/29/24 11:22 Pulse Rate 69 08/29/24 11:22 Respiratory Rate 18 08/29/24 11:22 Blood Pressure 135/94 H 08/29/24 11:22 Pulse Oximetry 100 08/29/24 11:22 Oxygen Delivery Room Air 08/29/24 11:22 MDM - URI/Sore Throat MDM Narrative Medical decision making narrative: Discussed physical exam findings and CXR. Reviewed Rx steroid. Pt states 'I always need an antibiotic after a few more days.' Rx Augmentin is sent she is advised not to take if symptoms improve with steroid. Advised supportive measures and signs/symptoms to go to the ER. Pt is appropriate for outpt treatment and f/u. Differential Diagnosis Differential diagnosis: Likely upper respiratory infection, viral infection, bronchitis and other (pneumonia) Imaging Data Radiologist's impression: Patient: Salome Cristobal : 1965 MR#: [id number] Age: 59 Acct:[id number] Loc: [id number] ADM Date: 08/29/24Attending Dr: Ordering Physician: Beba Echeverria APRN Date of Service: 08/29/24 Procedure(s): XR chest 2V Accession Number(s): [id number] cc: Beba Echeverria APRN; Beba Salas APRN~ EXAMINATION: XR chest 2V DATE: 08/29/2024 11:46 INDICATION: Cough. TECHNIQUE: Frontal and lateral views of the chest were obtained. COMPARISON: Chest 2 views 10/30/2023 FINDINGS: There is no pneumonia, pleural effusion, or pneumothorax. The heart size is normal. IMPRESSION: 1. No acute cardiopulmonary disease. Discharge Plan Discharge Clinical Impression: Bronchitis Patient Disposition: Home, Self-Care Condition: Stable Instructions: Antibiotic Form, Acute Bronchitis (ED) Additional Instructions: Acute bronchitis can be contagious because it is usually caused by infection with a virus or bacteria. It is usually for a few days but you can be contagious for up to one week. Take medication as directed Recommend Flonase spray and Zyrtec (or Claritin/Cindy) over the counter Cough syrup may cause drowsiness; avoid driving or take it at night time. Tylenol 1000mg every 8 hours as needed for pain Symptomatic treatment includes: rest, fluids, and increase humidity of the air at home. If no improvement or symptoms worsen after 3 days of the above treatments, you can start the antibiotic Follow up with your primary care provider as needed in 1 week Go to the ER for worsening symptoms or concerns Prescriptions: New benzonatate 200 mg capsule 200 mg PO TID PRN (Reason: cough) Qty: 20 0RF methylprednisolone [Medrol (Nikhil)] 4 mg tablets,dose pack See Rx Instructions .ROUTE .COMPLEX Qty: 21 0RF Rx Instructions: orally per package directions amoxicillin-pot clavulanate 875-125 mg tablet 1 tablet PO Q12H 7 Days Qty: 14 0RF No Action Dream Cream Testosterone 1% See Rx Instructions .ROUTE .COMPLEX Qty: 30 0RF Rx Instructions: Dream Cream (Arginine 6%, Sildenafil 2%, Testosterone 1%) Apply pea size amount to clitoris 15-20 minute prior to intercourse. melatonin 5 mg capsule 5 mg PO HS cholecalciferol (vitamin D3) 25 mcg (1,000 unit) capsule 25 mcg PO DAILY tizanidine 4 mg capsule See Rx Instructions .ROUTE .COMPLEX Qty: 30 1RF Dose Instruction: TAKE 1 CAPSULE BY MOUTH ONCE DAILY AT BEDTIME NEEDED FOR MUSCLE SPASTICITY. Rx Instructions: TAKE 1 CAPSULE BY MOUTH ONCE DAILY AT BEDTIME NEEDED FOR MUSCLE SPASTICITY. naproxen 500 mg tablet 500 mg PO BID PRN (Reason: pain) Qty: 180 1RF bupropion HCl 300 mg tablet extended release 24 hr See Rx Instructions .ROUTE .COMPLEX Qty: 90 1RF Dose Instruction: TAKE 1 TABLET BY MOUTH IN THE MORNING Rx Instructions: TAKE 1 TABLET BY MOUTH IN THE MORNING desvenlafaxine succinate 50 mg tablet extended release 24 hr 50 mg PO DAILY Qty: 90 2RF Rx Instructions: take 1 tablet p.o. q.h.s. naltrexone 4.5 mg capsule 6 mg PO .COMPLEX MDD 1 30 Days Qty: 30 2RF Rx Instructions: 1 tab =6 mg. 1 tab orally once daily; levothyroxine 50 mcg tablet See Rx Instructions .ROUTE .COMPLEX Qty: 90 1RF Dose Instruction: Take 1 tablet by mouth once daily Rx Instructions: Take 1 tablet by mouth once daily Follow-up/Referrals: Beba Salas, PROVIDER CONTRACTING CONSULTANT-C [Primary Care Provider] - Time of Disposition: 12:06
== END 2024-08-29 12:08 | disposition home or self-care (01) ==
PROVIDERS: Emergency Provider Nurse Practitioner Family; PCP Nurse Practitioner
DX: J40 Bronchitis, not specified as acute or chronic (principal); E03.9 Hypothyroidism, unspecified; M79.7 Fibromyalgia
CPT/HCPCS: 71046; 99213; G0463

== ENCOUNTER 2024-09-03 10:45 | Emergency (ER) | payer BC, SELFPAY ==
[2024-09-03 10:57] VITALS: BP 118/81; PULSE 73; RESP 16; TEMP 36.8; O2SAT 99
--- NOTE | 2024-09-03 10:59 | ED.GENADULT ---
HPI - General Adult General Chief complaint: Upper Respiratory Infection Stated complaint: Cough Time Seen by Provider: 09/03/24 10:59 Source: patient Mode of arrival: ambulatory Limitations: no limitations History of Present Illness HPI narrative: 59-year-old female patient presents to the [facility] with complaints of a cough. Patient was seen in the [facility] on Wednesday and had a chest x-ray done which was negative for pneumonia. Patient was provided methylprednisone and Tessalon Perles and given a wait and see prescription for Augmentin. Patient states she finished the steroids and her cough was not any better so tried to start the Augmentin. Patient states she has been on the Augmentin for about 48-72 hours with no relief. Patient denies any fevers, body aches or chills. Denies any abdominal pain, nausea, vomiting or diarrhea. Denies chest pain or shortness of breath at this time. Patient states that the cough is worse at night. Related Data Home Medications Medication Instructions Recorded Confirmed cholecalciferol (vitamin D3) 25 25 mcg PO DAILY 06/21/23 09/03/24 mcg (1,000 unit) capsule melatonin 5 mg capsule 5 mg PO HS 06/21/23 09/03/24 Allergies Allergy/AdvReac Type Severity Reaction Status Date / Time sulfamethoxazole Allergy Mild Hives Verified 09/03/24 11:11 trimethoprim Allergy Mild Hives Verified 09/03/24 11:11 Sulfa (Sulfonamide Allergy Unknown Hives Verified 09/03/24 11:11 Antibiotics) Review of Systems Review of Systems: CONSTITUTIONAL: Denies fever, chills, or sweats. EYES: Denies visual changes, redness, or discharge. ENT: Denies rhinorrhea, congestion, sore throat, or otalgia. CARDIOVASCULAR: Denies chest pain, palpitations, or edema. RESPIRATORY: Positive cough , denies dyspnea. GASTROINTESTINAL: Denies abdominal pain, nausea, vomiting, or diarrhea. GENITOURINARY: Denies dysuria or hematuria. SKIN: Denies rash or itching. MUSCULOSKELETAL: Denies back pain, joint pain, or myalgia. NEUROLOGIC: Denies headache, numbness, or weakness. PSYCHIATRIC: Denies anxiety or depression. [facility] Past Medical History Medical History Fibromyalgia Hypothyroid Left wrist fracture PVC (premature ventricular contraction) Spondylosis Surgical History Surgical History H/O tubal ligation (~1998) History of bladder surgery (~2003) A & P repair History of endometrial ablation (~2003) Previous section (~1991) [place] teeth extracted Family History Family History Mother Hypertension Sibling Hypertension Family history of malignant neoplasm of breast in first degree relative Father Family history of human immunodeficiency virus infection, Onset Age: 52 Patient's father is Grandparent Diabetes mellitus Social History Social History Smoking status: Never smoker Alcohol intake: current Alcohol use details: during holidays a glass of wine Substance use: never Substance use type: does not use Do You Feel Safe in your Home?: Yes Lack of Transportation: No Lack of Food: Never True Current Housing: I Have Housing Concerned About Future Housing: No Difficulty Paying Gas/Electric Bills: No Difficulty Paying for Meds: No Currently Unemployed: No Education: Bachelor's Degree Difficulty w/ Childcare or Family Care: No Living arrangements: with family Additional living arrangements comments: with sp 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 There is no relevant family history pertinent to the presenting complaint. Exam Narrative: GENERAL: Well-appearing, well-nourished, and in no acute distress. HEAD: Normocephalic, atraumatic. EYES: PERRLA and EOMI. ENT: Nares clear, no rhinorrhea or epistaxis. Mucous membranes moist. posterior pharynx with no erythema, tonsillar enlargement, exudates or lesions present. Bilateral TMs are clear no erythema foreign bodies the canal. NECK: Supple. No lymphadenopathy CHEST: Clear to auscultation. No respiratory distress. Patient able to talk in clear complete sentences. A deep cough is noted during exam. HEART: Regular rate and rhythm. No murmur heard. Normal peripheral pulses. ABDOMEN: Soft, nontender, nondistended, normal active bowel sounds. EXTREMITIES: Normal range of motion. No edema. SKIN: Warm, dry, no rash. NEURO: No focal deficits. Alert and oriented x3. Course Course Level of Care: Express Care Visit Vital Signs Vital signs: Vital Signs Temperature 36.8 C 09/03/24 10:57 Pulse Rate 73 09/03/24 10:57 Respiratory Rate 16 09/03/24 10:57 Blood Pressure 118/81 09/03/24 10:57 Pulse Oximetry 99 09/03/24 10:57 Temperature 36.8 C 09/03/24 10:57 Pulse Rate 73 09/03/24 10:57 Respiratory Rate 16 09/03/24 10:57 Blood Pressure 118/81 09/03/24 10:57 Pulse Oximetry 99 09/03/24 10:57 Vital signs reviewed. Medical Decision Making MDM Narrative Medical decision making narrative: Discussed with patient that since she has not seen any relief with the Augmentin this is most likely viral and antibiotics are not going to do anything to her. Discussed with her that viral bronchitis can last an EA where between 6-12 weeks. Patient was given methylprednisone at the last visit we will try some prednisone this time for the next 5 days along with an inhaler and refill the Tessalon Perles for her. Discussed with patient if she continues to have worsening symptoms I would advise to see her primary doctor for blood work and further evaluation. Patient verbalized understanding denies any other questions or concerns at this time. Differential Diagnosis Differential Diagnosis: Differential diagnosis: Allergic rhinitis, chronic sinusitis, tonsillitis, acute sinusitis, infectious mononucleosis, seasonal influenza, pertussis, diphtheria, meningococcal disease, viral syndrome, viral bronchitis, RSV, COVID-19 Vital Signs Vital Signs: Vital Signs Temperature 36.8 C 09/03/24 10:57 Pulse Rate 73 09/03/24 10:57 Respiratory Rate 16 09/03/24 10:57 Blood Pressure 118/81 09/03/24 10:57 Pulse Oximetry 99 09/03/24 10:57 Temperature 36.8 C 09/03/24 10:57 Pulse Rate 73 09/03/24 10:57 Respiratory Rate 16 09/03/24 10:57 Blood Pressure 118/81 09/03/24 10:57 Pulse Oximetry 99 09/03/24 10:57 Critical Care Time Critical Care Time Critical Care Time: No Discharge Plan Discharge Clinical Impression: Acute bronchitis, viral Patient Disposition: Home, Self-Care Condition: Stable Instructions: Antibiotic Form, Acute Bronchitis (ED) Additional Instructions: Acute bronchitis is swelling and irritation in the air passages of your lungs. This irritation may cause you to cough or have other breathing problems. Acute bronchitis often starts because of another viral illness, such as a cold or the flu. The illness spreads from your nose and throat to your windpipe and airways. Bronchitis is often called a chest cold. Acute bronchitis lasts about 2-6 weeks and is usually not a serious illness. AFTER YOU LEAVE: Medicines: Ibuprofen or acetaminophen: These medicines help lower a fever. They are available without a doctor's order. Ask your healthcare provider which medicine is right for you. Ask how much to take and how often to take it. Follow directions. These medicines can cause stomach bleeding if not taken correctly. Ibuprofen can cause kidney damage. Do not take ibuprofen if you have kidney disease, an ulcer, or allergies to aspirin. Acetaminophen can cause liver damage. Do not drink alcohol if you take acetaminophen. Cough medicine: This medicine helps loosen mucus in your lungs and make it easier to cough up. This can help you breathe easier. Inhalers: You may need one or more inhalers to help you breathe easier and cough less. An inhaler gives your medicine in a mist form so that you can breathe it into your lungs. Ask your healthcare provider to show you how to use your inhaler correctly. Steroid medicine: Steroid medicine helps open your air passages so you can breathe easier. Take your medicine as directed. Call your healthcare provider if you think your medicine is not helping or if you have side effects. How to use an inhaler: Shake the inhaler well to make sure you get the correct amount of medicine per puff. Remove the cover from your inhaler's mouthpiece. If you are using a spacer, connect your inhaler to the flat end of the spacer. Exhale as much air from your lungs as you can. Put the mouthpiece in your mouth past your front teeth and rest it on the top of your tongue. Do not block the mouthpiece opening with your tongue. Breathe in through your mouth at a slow and steady rate. As you do this, press the inhaler to release the puff of medicine. Finish breathing in slowly and deeply as you inhale the medicine. When your lungs are full, hold your breath for 10 seconds. Then breathe out slowly through puckered lips or through your nose. If you need to take more puffs, wait at least 1 minute between each puff. Rinse your mouth with water after you use the inhaler. This may keep you from getting a mouth infection or irritation. Follow the instructions that come with your inhaler to clean it. You should clean your inhaler at least once a week. Ways to care for yourself: Avoid alcohol: Alcohol dulls your urge to cough and sneeze. When you have bronchitis, you need to be able to cough and sneeze to clear your air passages. Alcohol also causes your body to lose fluid. This can make the mucus in your lungs thicker and harder to cough up. Avoid irritants in the air: Do not smoke or allow others to smoke around you. Avoid chemicals, fumes, and dust. Wear a face mask if you must work around dust or fumes. Stay inside on days when air pollution levels are high. If you have allergies, stay inside when pollen counts are high. Avoid aerosol products. This includes spray-on deodorant, bug spray, and hair spray. Drink more liquids: Most people should drink at least 8 eight-ounce cups of water a day. You may need to drink more liquids when you have acute bronchitis. Liquids help keep your air passages moist and help you cough up mucus. Get more rest: You may feel like resting more. Slowly start to do more each day. Rest when you feel it is needed. Eat healthy foods: Eat a variety healthy foods every day. Your diet should include fruits, vegetables, breads, and protein (such as chicken, fish, and beans). Dairy products (such as milk, cheese, and ice cream) can sometimes increase the amount of mucus your body makes. Ask if you should decrease your intake of dairy products. Use a humidifier: Use a cool mist humidifier to increase air moisture in your home. This may make it easier for you to breathe and help decrease your cough. Decrease your risk of acute bronchitis: Get the vaccinations you need: Ask your healthcare provider if you should get vaccinated against the flu or pneumonia. Avoid things that may irritate your lungs: Stay inside or cover your mouth and nose with a scarf when you are outside during cold weather. You should also stay inside on days when air pollution levels are high. If you have allergies, stay inside when pollen counts are high. Avoid using aerosol products in your home. This includes spray-on deodorant, bug spray, and hair spray. Avoid the spread of germs: Wash your hands often with soap and water. Carry germ-killing gel with you. You can use the gel to clean your hands when there is no soap and water available. Do not touch your eyes, nose, or mouth unless you have washed your hands first. Always cover your mouth when you cough. Cough into a tissue or your shirtsleeve so you do not spread germs from your hands. Try to avoid people who have a cold or the flu. If you are sick, stay away from others as much as possible. Follow up with your healthcare provider as directed: Write down questions you have so you will remember to ask them during your follow-up visits. Contact your healthcare provider if: You have a fever. Your skin becomes itchy or you have a rash after you take your medicine. Your breathing problems do not go away or get worse. Your cough does not get better with treatment. You cough up blood. You have questions or concerns about your condition or care. Seek care immediately or call 911 if: You faint. Your lips or fingernails turn blue. You feel like you are not getting enough air when you breathe. You have swelling of your lips, tongue, or throat that makes it hard to breathe or swallow. Prescriptions: New benzonatate 200 mg capsule 200 mg PO TID PRN (Reason: cough) 10 Days Qty: 30 0RF prednisone 20 mg tablet 20 mg PO DAILY 5 Days Qty: 5 0RF albuterol sulfate [Ventolin HFA] 90 mcg/actuation HFA aerosol inhaler 2 puff INHALATION .Q4 hours PRN (Reason: cough) Qty: 18 0RF No Action benzonatate 200 mg capsule 200 mg PO TID PRN (Reason: cough) Qty: 20 0RF amoxicillin-pot clavulanate 875-125 mg tablet 1 tablet PO Q12H 7 Days Qty: 14 0RF Dream Cream Testosterone 1% See Rx Instructions .ROUTE .COMPLEX Qty: 30 0RF Rx Instructions: Dream Cream (Arginine 6%, Sildenafil 2%, Testosterone 1%) Apply pea size amount to clitoris 15-20 minute prior to intercourse. melatonin 5 mg capsule 5 mg PO HS cholecalciferol (vitamin D3) 25 mcg (1,000 unit) capsule 25 mcg PO DAILY tizanidine 4 mg capsule See Rx Instructions .ROUTE .COMPLEX Qty: 30 1RF Dose Instruction: TAKE 1 CAPSULE BY MOUTH ONCE DAILY AT BEDTIME NEEDED FOR MUSCLE SPASTICITY. Rx Instructions: TAKE 1 CAPSULE BY MOUTH ONCE DAILY AT BEDTIME NEEDED FOR MUSCLE SPASTICITY. naproxen 500 mg tablet 500 mg PO BID PRN (Reason: pain) Qty: 180 1RF bupropion HCl 300 mg tablet extended release 24 hr See Rx Instructions .ROUTE .COMPLEX Qty: 90 1RF Dose Instruction: TAKE 1 TABLET BY MOUTH IN THE MORNING Rx Instructions: TAKE 1 TABLET BY MOUTH IN THE MORNING desvenlafaxine succinate 50 mg tablet extended release 24 hr 50 mg PO DAILY Qty: 90 2RF Rx Instructions: take 1 tablet p.o. q.h.s. naltrexone 4.5 mg capsule 6 mg PO .COMPLEX MDD 1 30 Days Qty: 30 2RF Rx Instructions: 1 tab =6 mg. 1 tab orally once daily; levothyroxine 50 mcg tablet See Rx Instructions .ROUTE .COMPLEX Qty: 90 1RF Dose Instruction: Take 1 tablet by mouth once daily Rx Instructions: Take 1 tablet by mouth once daily Follow-up/Referrals: Beba Salas CHILD DEVELOPMENT CONSULTANT-[facility] [Primary Care Provider] - Time of Disposition: 11:13
== END 2024-09-03 11:28 | disposition home or self-care (01) ==
PROVIDERS: Emergency Provider Nurse Practitioner Family; PCP Nurse Practitioner
DX: J20.8 Acute bronchitis due to other specified organisms (principal)
CPT/HCPCS: 99213; G0463

== ENCOUNTER 2024-09-18 00:37 | Day surgery (SDC) | payer BC, SELFPAY ==
[2024-09-11 13:11] VITALS: BMI 25.0
--- NOTE | 2024-09-11 13:12 | PC.NURSE ---
Report to the Outpatient Waiting Room, entrance under the green pavilion located off [facility], at time _1200_ on date _[id number]_. Planned Procedure Time: _1pm_.? Time changes happen often and if your time is changed the preop area will call you the afternoon before. - You and your visitor will be asked to self-screen and do not enter if you have any COVID symptoms. Please call surgeon if you need to reschedule. - A mask is optional within the hospital at this time. Ok for light breakfast. Nothing to eat or drink after 11am. Take only the following medications with a SIP of water on the morning of surgery: __All meds ok. DO NOT STOP ANY OF YOUR OTHER PRESCRIPTION MEDICATIONS PRIOR TO SURGERY EXCEPT THE FOLLOWING Medications to discontinue per physician ___None___ Please no make-up, nail georgian, hairspray, perfume, deodorant, or body powder the day of surgery.? No jewelry (including any body piercings) or valuables the day of surgery, leave them at home.? Please take a shower or bath the night before, or the morning of, surgery with an antibacterial soap.? Wear comfortable, loose fitting clothing.? - Jewelry must be removed prior to entering the operating room.? Rings and piercings that are not removed may be cut off. - The hospital will not accept responsibility for valuables.? - Please leave all valuables, including medications, at home the day of surgery. If you are going home after surgery, a licensed wheat combine driver must drive you home.? - NO public transportation without another adult if you receive anesthesia. - We recommend that an adult stay with you for 24 hours following discharge. - We also recommend that you do not drive, make important decision, drink alcoholic beverages, or take any drugs that were not prescribed by your health care provider for at least 24 hours after your discharge time. Follow any additional instructions given to you from your surgeon. Telephone instructions given to _Kim__and asked if any additional questions and then verbalized understanding. Patient advised to call surgeon office or pre surgery nurse liaison [phone] if any additional questions.
--- NOTE | ~2024-09-18 | XR_ITS ---
INTRAOPERATIVE FLUOROSCOPY: CLINICAL HISTORY: 59 years old Female; BILATERAL L3,L4,L5 MEDIAL BRANCH/DORSAL RAMUS NERVE BLOCK PROCEDURE COMMENTS: Limited intraoperative fluoroscopy of the lumbar spine was performed. CUMULATIVE DOSE: 3.32 mGy FLUOROSCOPY TIME: 22.2 seconds FINDINGS/IMPRESSION: Please refer to operative note for further details. Reviewed, dictated and finalized at location A. OF HOUSEKEEPING
--- NOTE | 2024-09-18 05:47 | PM.HPGS ---
History of Present Illness History of Present Illness Consent: Risks, benefits, and alternatives have been discussed and questions answered. Patient agrees to proceed with procedure. Chief complaint: lumbosacral spondylosis, chronic low back pain Narrative: Salome Cristobal is a 59 year old female with chronic, recalcitrant and disabling bilateral lumbosacral back pain secondary to degenerative spondylosis with failure to respond to aggressive conservative measures including PT, oral and topical analgesics, opioid and nonopioid analgesics, rest, time and activity/behavioral modification over the past 1-2 years who presents for diagnostic/prognostic medial branch blocks of the bilateral L3, L4, L5 branches ( #2 ) addressing the bilateral L4-5, L5-S1 facet joints under fluoroscopic guidance and with contrast control. Review of Systems Review of Systems: Patient denies any new infectious, allergic, cardiopulmonary, neurologic or constitutional symptoms or changes in activity tolerance or exercise capacity including new or progressive SOB/ROBERTSON, peripheral edema, productive cough, dysuria, nausea/vomiting, diarrhea, weight change, fevers/chills/night sweats, new or progressive neurologic deficit, cognitive or mood changes since last seen, except as documented in the HPI. All systems reviewed & are unremarkable except as noted in HPI and below PMFSH Past Medical History Medical History Fibromyalgia Hypothyroid Left wrist fracture PVC (premature ventricular contraction) Spondylosis Surgical History Surgical History H/O tubal ligation (~1998) History of bladder surgery (~2003) A & P repair History of endometrial ablation (~2003) Previous section (~1991) [place] teeth extracted Family History Family History Mother Hypertension Sibling Hypertension Family history of malignant neoplasm of breast in first degree relative Father Family history of human immunodeficiency virus infection, Onset Age: 52 Patient's father is Grandparent Diabetes mellitus Social History Social History Smoking status: Never smoker Alcohol intake: current Alcohol use details: during holidays a glass of wine Substance use: never Substance use type: does not use Do You Feel Safe in your Home?: Yes Lack of Transportation: No Lack of Food: Never True Current Housing: I Have Housing Concerned About Future Housing: No Difficulty Paying Gas/Electric Bills: No Difficulty Paying for Meds: No Currently Unemployed: No Education: Bachelor's Degree Difficulty w/ Childcare or Family Care: No Living arrangements: with family Additional living arrangements comments: with sp 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 Gender identity (if verbalized by the patient): Female Sexual Orientation (if Verbalized by the Patient): Straight or Heterosexual Spiritual care concerns: No Meds Home Medications and Allergies Home Medications Medication Instructions Recorded Confirmed Type cholecalciferol (vitamin D3) 25 25 mcg PO DAILY 06/21/23 09/11/24 History mcg (1,000 unit) capsule melatonin 5 mg capsule 5 mg PO HS 06/21/23 09/11/24 History desvenlafaxine succinate 50 mg 50 mg PO DAILY fibromyalgia #90 07/11/24 09/11/24 Rx tablet,extended release 24 hr tabs Dream Cream Testosterone 1% See Rx Instructions .Route 08/07/24 09/11/24 Rx .COMPLEX #30 grams bupropion HCl 300 mg 24 hr tablet, See Rx Instructions .Route 08/09/24 09/11/24 Rx extended release .COMPLEX #90 tabs naproxen 500 mg tablet 500 mg PO BID PRN pain #180 tabs 08/09/24 09/11/24 Rx tizanidine 4 mg capsule See Rx Instructions .Route 08/09/24 09/11/24 Rx .COMPLEX #30 caps naltrexone 4.5 mg capsule 6 mg PO .COMPLEX fibromyalgia 30 08/10/24 09/11/24 Rx days #30 caps levothyroxine 50 mcg tablet See Rx Instructions .Route 08/14/24 09/11/24 Rx .COMPLEX #90 tabs benzonatate 200 mg capsule 200 mg PO TID PRN cough #20 caps 08/29/24 09/11/24 Rx albuterol sulfate 90 mcg/actuation 2 puff inhalation .Q4 hours PRN 09/03/24 09/11/24 Rx aerosol inhaler (Ventolin HFA) cough #18 grams Allergies Allergy/AdvReac Type Severity Reaction Status Date / Time sulfamethoxazole Allergy Mild Hives Verified 09/11/24 13:05 trimethoprim Allergy Mild Hives Verified 09/11/24 13:05 Sulfa (Sulfonamide Allergy Unknown Hives Verified 09/11/24 13:05 Antibiotics) Exam Narrative: The patient's physical exam is essentially unchanged from prior examination on 08/01/2024. Specifically, patient demonstrates normal lung capacity, tidal volume and respiratory rate without wheezes, crackles, rales or rubs. Heart rate and rhythm are regular without murmurs, gallops or rubs. No JVD. Pulses 2+ globally without increasing peripheral edema. AAOx3, NC/AT without acute distress or altered consciousness. Speech, cognition, mood and judgment at baseline and within normal limits. Const: General: alert, awake and Physically active; No acute distress Orientation/consciousness: patient oriented x3 Assessment and Plan Assessment and plan (1) Lumbosacral spondylosis: Code(s): M47.817 - Spondylosis without myelopathy or radiculopathy, lumbosacral region Status: Acute Assessment and Plan: proceed as planned with a bilateral diagnostic/prognostic medial branch/dorsal ramus nerve blocks at L3, L4, L5 ( # 2) under fluoroscopic guidance and contrast control. (2) Chronic pain associated with significant psychosocial dysfunction: Code(s): G89.4 - Chronic pain syndrome Status: Acute (3) Chronic low back pain: Code(s): M54.50 - Low back pain, unspecified; G89.29 - Other chronic pain Status: Acute
--- NOTE | 2024-09-18 05:50 | WPDHPUPDATE1 ---
History and Physical Update Update Date/Time: 09/18/24 05:50 History and Physical has been reviewed, including an updated exam of the patient. There are NO changes in the patient's condition. Risks, benefits, and alternatives have been discussed and questions answered. Patient agrees to proceed with procedure.
--- NOTE | 2024-09-18 05:52 | W.PM.PROC2 ---
Procedure Note - Detailed Date of Procedure 09/18/24 Pre-op Diagnosis lumbosacral spondylosis, chronic low back pain Post-op Diagnosis Same Procedure Performed Diagnostic bilateral Lumbar Medial Branch/Dorsal Ramus Blocks at L3, L4, L5 Treating the bilateral L4-5, L5-S1 Facet Joints Under Fluoroscopic Guidance and with Contrast Control. ( 4 levels blocked). Surgeon Josh East MD Assistant Director Of Nursing None. Anesthesia Local Description of Procedure INFORMED CONSENT: Risks, benefits and alternatives to the procedure were discussed in detail with the patient who expressed explicit understanding and consent to proceed. Patient was informed verbally and in written form regarding the risks associated with the procedure including the low risk of serious infection, bleeding/bruising, allergic reaction, nerve or organ injury, paralysis, procedural site pain or discomfort, worsening pain and/or mobility, failure to treat and/or disfigurement. The patient expressed explicit understanding and consent to proceed. All materials required for the procedure were available prior to procedure start. Site and side were marked prior to procedure and confirmed in the presence of the patient. PROCEDURE IN DETAIL: The patient was brought to the procedural suite and placed in the prone position. Patient was made comfortable with use of pillows under the head/chest, hips and ankles. Skin overlying the injection site on the affected side(s) was prepared broadly with ChloraPrep applicator and draped in a sterile manner. Aseptic technique was used throughout. The endplates of the vertebral bodies at the site(s) of interest were aligned in the AP view. Ipsilateral oblique angulation was utilized to optimize visualization of the intersection between the superior articulating process and transverse process at each target site. Local anesthesia was established by infiltration with approximately 5 mL of 1% lidocaine via a 1-1/2 inch 27-gauge needle. A 25-gauge 3.5 inch Quincke spinal needle was advanced until the needle tip contacted periosteum at the target site, right L3. Lateral view was utilized to confirm the appropriate placement of the needle tip just anterior to the facet line and superior to the pedicle. In the Lateral view, 0.25 mL of Omnipaque 300 contrast medium was injected after negative aspiration for CSF, blood or other bodily fluid, showing appropriate extra-articular spread of contrast without evidence of intravascular, foraminal or intrathecal placement. A 0.5 mL solution of 2.0% PF lidocaine was injected after negative repeat aspiration. Appropriate spread of the injectate was confirmed with washout of previously injected contrast. No parasthesias were elicited. Needle was removed completely intact without difficulty. The same exact procedure was repeated for all remaining levels on the ipsilateral side, right L4, L5 medial branches/dorsal ramus, modified as necessary to accommodate for the new target location with identical findings and results and no evidence of complication. The same exact procedure was repeated for all remaining levels on the contralateral side, left L3, L4, L5 medial branches/dorsal ramus, modified as necessary to accommodate for the new target location with identical findings and results and no evidence of complication. Images were saved and documented in the patient chart. Patient's skin was cleaned and sterile bandage applied. The patient tolerated the procedure well. The patient was transported to the recovery area in stable condition where they were observed for an appropriate amount of time prior to discharge, without evidence of complication. Patient was instructed on the appropriate completion of a pain diary over the next 12-24 hours. The patient was instructed to avoid excessive activity for the next 48 hours, including climbing and frequent use of stairs. Showers only for 48 hours. They were instructed not to drive or operate heavy machinery for 24 hours. They are to monitor for severe headaches, fevers, chills, night sweats, erythema/swelling at the site or any other signs of infection, bleeding/bruising, bowel or bladder changes as well as new pain, weakness or numbness in the upper or lower extremity. Should they notice these changes, they are instructed to call our office immediately or report directly to the nearest Emergency Department if no answer or if after posted office hours. COMPLICATIONS: None COMMENTS: None CONTRAST WASTED: 28.5mL Omnipaque 300. Complications No immediate complications Condition Stable Disposition Same day [facility] Billing Surgery - Charge Forward: Surgery Billing
[2024-09-18 08:00] VITALS: BP 145/95; PULSE 84; RESP 14; TEMP 36.6; O2SAT 98
[2024-09-18 08:15] VITALS: BP 130/82; PULSE 66; RESP 16; O2SAT 97
[2024-09-18] MEDS: LIDOCAINE HCL 2% PF INJ 5 ML VIAL INFILTRATE (08:21)
[2024-09-18 08:25] VITALS: BP 128/86; PULSE 62; RESP 16; O2SAT 97
[2024-09-18 08:31] VITALS: BP 148/81; PULSE 72; RESP 16; O2SAT 99
== END 2024-09-18 08:51 | disposition home or self-care (01) ==
PROVIDERS: PCP Nurse Practitioner; Visit Provider Anesthesiology Pain Medicine
PROC: (CPT 64493; principal; 2024-09-18 08:15)
DX: M47.817 Spondylosis without myelopathy or radiculopathy, lumbosacral region (principal); G89.4 Chronic pain syndrome; E03.9 Hypothyroidism, unspecified; M79.7 Fibromyalgia; Z79.51 Long term (current) use of inhaled steroids
CPT/HCPCS: 64493; 64494 ×2; 64495 ×2; 99199; J2003; Q9965

== ENCOUNTER 2024-12-12 01:08 | Day surgery (SDC) | payer BC, SELFPAY ==
[2024-12-05 13:15] VITALS: BMI 24.7
--- NOTE | 2024-12-05 13:16 | PC.NURSE ---
Addendum entered by Agusto Butler RN 12/05/24 13:22: Patient told nothing to eat or drink after midnight except water with pills. Original Note: Report to the Outpatient Waiting Room, entrance under the green pavilion located off [facility], at time _1130_ on date _[id number]_. Planned Procedure Time: _130pm.? Time changes happen often and if your time is changed the preop area will call you the afternoon before. - You and your visitor will be asked to self-screen and do not enter if you have any COVID symptoms. Please call surgeon if you need to reschedule. - A mask is optional within the hospital at this time. Patients may have clear liquids (water, carbonated beverages, clear teas, apple juice) until 3 hours prior to surgery with a maximum of 20 ounces. - No food from midnight until time of surgery and no smoking. This includes no chewing gum, candy or mints. Take only the following medications with a SIP of water on the morning of surgery: ___Bupropion, Levothyroxine____ DO NOT STOP ANY OF YOUR OTHER PRESCRIPTION MEDICATIONS PRIOR TO SURGERY EXCEPT THE FOLLOWING Medications to discontinue per physician ____Patient says she's stopping Naproxen today. Date to take last slcu___[id number]____ Please no make-up, nail chinese, hairspray, perfume, deodorant, or body powder the day of surgery.? No jewelry (including any body piercings) or valuables the day of surgery, leave them at home.? Please take a shower or bath the night before, or the morning of, surgery with an antibacterial soap.? Wear comfortable, loose fitting clothing.? - Jewelry must be removed prior to entering the operating room.? Rings and piercings that are not removed may be cut off. - The hospital will not accept responsibility for valuables.? - Please leave all valuables, including medications, at home the day of surgery. If you are going home after surgery, a licensed straight truck driver must drive you home.? - NO public transportation without another adult if you receive anesthesia. - We recommend that an adult stay with you for 24 hours following discharge. - We also recommend that you do not drive, make important decision, drink alcoholic beverages, or take any drugs that were not prescribed by your health care provider for at least 24 hours after your discharge time. Hold all vitamins and supplements for 3 days per anesthesiologist. Follow any additional instructions given to you from your surgeon. Telephone instructions given to _Kim___and asked if any additional questions and then verbalized understanding. Patient advised to call surgeon office or pre surgery nurse liaison [phone] if any additional questions
--- NOTE | ~2024-12-12 | XR_ITS ---
INTRAOPERATIVE FLUOROSCOPY: CLINICAL HISTORY: 59 years old Female; ABLATION L3-5 PROCEDURE COMMENTS: Limited intraoperative fluoroscopy of the lumbar spine was performed. CUMULATIVE DOSE: 74 mGy FLUOROSCOPY TIME: 132 seconds FINDINGS/IMPRESSION: Please refer to operative note for further details. Reviewed, dictated and finalized at location A. [employer] ENFORCEMENT ANALYST
[2024-12-12 12:36] VITALS: BP 133/90; PULSE 75; RESP 18; TEMP 36.6; O2SAT 100
[2024-12-12] MEDS: LACTATED RINGERS 1,000 ML 30 ML IV CONT ×2 (12:50→15:04)
--- NOTE | 2024-12-12 13:23 | SUR.PREOP ---
PT INFORMED UPON ARRIVAL THAT HER SURGERY TIME IS CURRENTLY DELAYED BY 1 1/2 HRS.
--- NOTE | 2024-12-12 13:40 | PM.HPGS ---
History of Present Illness History of Present Illness Consent: Risks, benefits, and alternatives have been discussed and questions answered. Patient agrees to proceed with procedure. Chief complaint: lumbosacral spondylosis, chronic low back pain Narrative: Salome Cristobal is a 59 year old female with chronic, recalcitrant and disabling bilateral lumbosacral back pain secondary to degenerative spondylosis with failure to respond to aggressive conservative measures including PT, oral and topical analgesics, opioid and nonopioid analgesics, rest, time and activity/behavioral modification over the past 1-2 years who presents for thermal radiofrequency ablation of the bilateral L3, L4, L5 medial branches/dorsal ramus addressing the bilateral L4-5, L5-S1 facet joints under fluoroscopic guidance. Review of Systems Review of Systems: Patient denies any new infectious, allergic, cardiopulmonary, neurologic or constitutional symptoms or changes in activity tolerance or exercise capacity including new or progressive SOB/ROBERTSON, peripheral edema, productive cough, dysuria, nausea/vomiting, diarrhea, weight change, fevers/chills/night sweats, new or progressive neurologic deficit, cognitive or mood changes since last seen, except as documented in the HPI. All systems reviewed & are unremarkable except as noted in HPI and below PMFSH Past Medical History Medical History Fibromyalgia Hypothyroid Left wrist fracture PVC (premature ventricular contraction) Spondylosis Surgical History Surgical History H/O tubal ligation (~1998) History of bladder surgery (~2003) A & P repair History of endometrial ablation (~2003) Previous section (~1991) [place] teeth extracted Family History Family History Mother Hypertension Sibling Hypertension Family history of malignant neoplasm of breast in first degree relative Father Family history of human immunodeficiency virus infection, Onset Age: 52 Patient's father is Grandparent Diabetes mellitus Social History Social History Smoking status: Never smoker Alcohol intake: current Alcohol use details: during holidays a glass of wine Substance use: never Substance use type: does not use Do You Feel Safe in your Home?: Yes Lack of Transportation: No Lack of Food: Never True Current Housing: I Have Housing Concerned About Future Housing: No Difficulty Paying Gas/Electric Bills: No Difficulty Paying for Meds: No Currently Unemployed: No Education: Bachelor's Degree Difficulty w/ Childcare or Family Care: No Living arrangements: with family Additional living arrangements comments: with sp 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 Gender identity (if verbalized by the patient): Female Sexual Orientation (if Verbalized by the Patient): Straight or Heterosexual Spiritual care concerns: No Meds Home Medications and Allergies Home Medications ?Medication ?Instructions ?Recorded ?Confirmed ?Type cholecalciferol (vitamin D3) 25 25 mcg PO DAILY 06/21/23 12/12/24 History mcg (1,000 unit) capsule melatonin 5 mg capsule 5 mg PO HS 06/21/23 12/12/24 History Dream Cream Testosterone 1% See Rx Instructions .Route 08/07/24 12/05/24 Rx .COMPLEX #30 grams bupropion HCl 300 mg 24 hr tablet, See Rx Instructions .Route 08/09/24 12/12/24 Rx extended release .COMPLEX #90 tabs naproxen 500 mg tablet 500 mg PO BID PRN pain #180 tabs 08/09/24 12/12/24 Rx tizanidine 4 mg capsule See Rx Instructions .Route 08/09/24 12/05/24 Rx .COMPLEX #30 caps levothyroxine 50 mcg tablet See Rx Instructions .Route 08/14/24 12/12/24 Rx .COMPLEX #90 tabs naltrexone 4.5 mg capsule See Rx Instructions .Route 11/10/24 12/12/24 Rx .COMPLEX #30 ea Allergies Allergy/AdvReac Type Severity Reaction Status Date / Time sulfamethoxazole Allergy Mild Hives Verified 12/12/24 12:54 trimethoprim Allergy Mild Hives Verified 12/12/24 12:54 Sulfa (Sulfonamide Allergy Unknown Hives Verified 12/12/24 12:54 Antibiotics) Vital Signs Vital Signs - 24 hr 12/12/24 12:36 Temperature 97.9 F Pulse Rate 75 Respiratory Rate 18 Blood Pressure 133/90 Pulse Oximetry 100 Oxygen Delivery Room Air Exam Narrative: The patient's physical exam is essentially unchanged from prior examination on 09/25/2024. Specifically, patient demonstrates normal lung capacity, tidal volume and respiratory rate without wheezes, crackles, rales or rubs. Heart rate and rhythm are regular without murmurs, gallops or rubs. No JVD. Pulses 2+ globally without increasing peripheral edema. AAOx3 with no evidence of confusion, intoxication or altered mental state, NC/AT without acute distress or altered consciousness. Speech, cognition, mood, insight and judgment at baseline and within normal limits. Assessment and Plan Assessment and plan (1) Lumbosacral spondylosis: Code(s): M47.817 - Spondylosis without myelopathy or radiculopathy, lumbosacral region Status: Acute Assessment and Plan: Proceed as planned with thermal radiofrequency ablation of the bilateral L3, L4, L5 medial branches/dorsal ramus addressing the bilateral L4-5, L5-S1 facet joints under fluoroscopic guidance. (2) Dorsalgia: Code(s): M54.9 - Dorsalgia, unspecified Status: Acute (3) Chronic low back pain: Code(s): M54.50 - Low back pain, unspecified; G89.29 - Other chronic pain Status: Acute
--- NOTE | 2024-12-12 13:42 | WPDHPUPDATE1 ---
History and Physical Update Update Date/Time: 12/12/24 13:42 History and Physical has been reviewed, including an updated exam of the patient. There are NO changes in the patient's condition. Risks, benefits, and alternatives have been discussed and questions answered. Patient agrees to proceed with procedure.
--- NOTE | 2024-12-12 13:52 | WPDHPUPDATE1 ---
History and Physical Update Update Date/Time: 12/12/24 13:52 History and Physical has been reviewed, including an updated exam of the patient. There are NO changes in the patient's condition. Risks, benefits, and alternatives have been discussed and questions answered. Patient agrees to proceed with procedure.
--- NOTE | 2024-12-12 13:54 | P.OP_ITS ---
Procedure Note - Detailed Date of Procedure 12/12/24 Pre-op Diagnosis lumbosacral spondylosis, chronic low back pain Post-op Diagnosis Same Procedure Performed Thermal Radiofrequency Ablation of the bilateral Lumbar Medial Branches/Dorsal Ramus at the L3, L4, L5 Levels Treating the bilateral L4-5, L5-S1 Facet Joints Under Fluoroscopic Guidance (4 Levels Treated). Surgeon Josh East MD Painter Sign Maintenance None. Anesthesia Local (w/ MAC) Description of Procedure INFORMED CONSENT: Risks, benefits and alternatives to the procedure were discussed in detail with the patient who expressed explicit understanding and consent to proceed. Patient was informed verbally and in written form regarding the risks associated with the procedure including the low risk of serious infection, bleeding/bruising, allergic reaction, nerve or organ injury, paralysis, procedural site pain or discomfort, worsening pain and/or mobility, failure to treat and/or disfigurement. The patient expressed explicit understanding and consent to proceed. All materials required for the procedure were available prior to procedure start. Site and side were marked prior to procedure and confirmed in the presence of the patient. PROCEDURE IN DETAIL: The patient was brought to the procedural suite and placed in the prone position. Patient was made comfortable with use of pillows under the head/chest, hips and ankles. ASA standard monitors were applied and used throughout the procedure. Skin overlying the injection site on the affected side(s) was prepared broadly with ChloraPrep applicator and draped in a sterile manner. Aseptic technique was used throughout. The endplates of the vertebral bodies at the site(s) of interest were aligned in the AP view. Ipsilateral oblique angulation was utilized to optimize visualization of the intersection between the superior articulating process and transverse process at each target site. Local anesthesia was established by infiltration with approximately 5 mL of 1% lidocaine via a 1-1/2 inch 27-gauge needle divided over each site treated. A 16-gauge 100mm [employer] RF needle with curved 10mm active tip was advanced in the AP view until the needle tip contacted the periosteum at the target site, the right L3 medial branch. Lateral view was utilized to adjust and confirm the appropriate placement of the needle tip just anterior to the facet line, superior to the pedicle and posterior to the foramen. Grounding electrode was in place and functioning. The appropriately-sized RF cannula was inserted into the RF needle and motor stimulation was performed with no subjective or objective evidence of recruited muscle activity with stimulation up to 2.0 volts at a frequency of 2Hz. 1.5 mL of 2.0% PF lidocaine was injected after negative aspiration. After a 90s pause, lesioning was performed to 90 degrees centigrade for 90s ensuring lack of symptoms in the extremity throughout. Needle was rotated 180 degrees and lesioning repeated in a similar manner. Patient tolerated this well. No parasthesias were elicited. Needle was removed completely intact without difficulty. The same procedure was repeated for all intended levels/ structures on the ipsilateral side, right L4, L5 medial branch/dorsal ramus with identical methodology, modified to compensate for new location, with similar results and no evidence of complication. The same exact procedure was repeated for all remaining levels on the contralateral side, left L3, L4, L5 medial branches/dorsal ramus, modified as necessary to accommodate for the new target location with identical findings/results and no evidence of complication. Images were saved and documented in the patient chart. Patient's skin was cleansed and sterile bandage applied. The patient tolerated the procedure well. The patient was transported to the recovery area in stable condition where they were observed for an appropriate amount of time prior to discharge, without evidence of complication. The patient was instructed to avoid excessive activity for the next 48 hours, in cluding climbing and frequent use of stairs. Showers only for 48 hours. They were instructed not to drive or operate heavy machinery for 24 hours. They are to monitor for severe headaches, fevers, chills, night sweats, erythema/swelling at the site or any other signs of infection, bleeding/bruising, bowel or bladder changes as well as new pain, weakness or numbness in the upper or lower extremity. Should they notice these changes, they are instructed to call our office immediately or report directly to the nearest Emergency Department if no answer or if after posted office hours. COMPLICATIONS: None COMMENTS: None Complications No immediate complications Condition Stable Disposition PACU [facility] Billing Surgery - Charge Forward: Surgery Billing
--- NOTE | 2024-12-12 14:48 | P.PNAN_ITS ---
Anes - Initial Pre Proc Eval Procedure: Operation Date: 12/12/24 13:30 Proposed Procedures p Thermal Radio Frequency Ablation BiLateral L3, L4, L5 Medial Branch/Dorsal Rami Addressing Bilateral L4-5, L5-S1 Facet Joints Under Fluoroscopic Guidance and Contrast Control - Josh East MD Date/Time: 12/12/24 14:48 Surgeon: Josh East MD Pre Op Diagnosis: lumbosacral spondylosis, chronic low back pain Patient Data Age: 59 Gender: F Height: 1.68 m Weight: 69.6 kg Last Vital Signs Temp 97.9 F 12/12/24 12:36 Pulse 75 12/12/24 12:36 Resp 18 12/12/24 12:36 BP 133/90 12/12/24 12:36 Pulse Ox 100 12/12/24 12:36 O2 Del Method Room Air 12/12/24 12:36 Allergies Allergy/AdvReac Type Severity Reaction Status Date / Time sulfamethoxazole Allergy Mild Hives Verified 12/12/24 12:54 trimethoprim Allergy Mild Hives Verified 12/12/24 12:54 Sulfa (Sulfonamide Allergy Unknown Hives Verified 12/12/24 12:54 Antibiotics) Home Medications ?Medication ?Instructions ?Recorded ?Confirmed ?Type cholecalciferol (vitamin D3) 25 25 mcg PO DAILY 06/21/23 12/12/24 History mcg (1,000 unit) capsule melatonin 5 mg capsule 5 mg PO HS 06/21/23 12/12/24 History Dream Cream Testosterone 1% See Rx Instructions .Route 08/07/24 12/05/24 Rx .COMPLEX #30 grams bupropion HCl 300 mg 24 hr tablet, See Rx Instructions .Route 08/09/24 12/12/24 Rx extended release .COMPLEX #90 tabs naproxen 500 mg tablet 500 mg PO BID PRN pain #180 tabs 08/09/24 12/12/24 Rx tizanidine 4 mg capsule See Rx Instructions .Route 08/09/24 12/05/24 Rx .COMPLEX #30 caps levothyroxine 50 mcg tablet See Rx Instructions .Route 08/14/24 12/12/24 Rx .COMPLEX #90 tabs naltrexone 4.5 mg capsule See Rx Instructions .Route 11/10/24 12/12/24 Rx .COMPLEX #30 ea Patient hx anesthesia problems: none Family hx anesthesia problems: none Results Review: All pre-operative results and documents have been reviewed as part of the pre- operative evaluation. [facility] Past Medical History Medical History Spondylosis Hypothyroid Left wrist fracture Fibromyalgia PVC (premature ventricular contraction) Surgical History Surgical History [place] teeth extracted History of endometrial ablation (~2003) History of bladder surgery (~2003) A & P repair Previous section (~1991) H/O tubal ligation (~1998) Family History Family History Mother Hypertension Sibling Hypertension Family history of malignant neoplasm of breast in first degree relative Father Family history of human immunodeficiency virus infection, Onset Age: 52 Patient's father is Grandparent Diabetes mellitus Social History Social History Smoking status: Never smoker Alcohol intake: current Alcohol use details: during holidays a glass of wine Substance use: never Substance use type: does not use Do You Feel Safe in your Home?: Yes Lack of Transportation: No Lack of Food: Never True Current Housing: I Have Housing Concerned About Future Housing: No Difficulty Paying Gas/Electric Bills: No Difficulty Paying for Meds: No Currently Unemployed: No Education: Bachelor's Degree Difficulty w/ Childcare or Family Care: No Living arrangements: with family Additional living arrangements comments: with sp 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 ) Neurological: alert and oriented Last oral intake: >/= 8 hours ASA classification: II Emergent: no Anesthetic plan: proceed Anesthesia type and monitoring: general GIVS and standard monitoring Results Review: All pre-operative results and documents have been reviewed as part of the pre- operative evaluation. Hypothyroidism, hx of PVCs, fibromyalgia. Informed Consent: The patient's anesthetic plan and its attendant risks and benefits were discussed with the patient/family/POA. Questions were solicited and answers provided to the satisfaction of the patient/family/POA.
[2024-12-12] MEDS: BUPivacaine HCL 0.5% PF 30 ML VIAL INFILTRATE (15:08)
[2024-12-12] MEDS: ceFAZolin 2 GM/D5W 50 ML 2 GM/50 ML BAG IVPB (15:08)
[2024-12-12] MEDS: LIDOCAINE 2% PF LOCAL INJ 5 ML VIAL 10 ML INFILTRATE (15:08)
[2024-12-12 15:55] VITALS: BP 125/79; PULSE 74; RESP 20
[2024-12-12] MEDS: oxyCODONE HCL (*CRX) 5 MG TAB IR PO (16:24)
[2024-12-12 16:25] VITALS: BP 125/77; PULSE 61; RESP 20
[2024-12-12 16:55] VITALS: BP 114/86; PULSE 60; RESP 20
[2024-12-12 17:10] VITALS: BP 143/71; PULSE 63; RESP 20
== END 2024-12-12 17:15 | disposition home or self-care (01) ==
PROVIDERS: PCP Nurse Practitioner; Visit Provider Anesthesiology Pain Medicine
PROC: (CPT 64635; principal; 2024-12-12 13:30)
DX: M54.9 Dorsalgia, unspecified (principal); M47.817 Spondylosis without myelopathy or radiculopathy, lumbosacral region; G89.29 Other chronic pain; M79.7 Fibromyalgia; E03.9 Hypothyroidism, unspecified; I49.3 Ventricular premature depolarization; Z79.1 Long term (current) use of non-steroidal anti-inflammatories (NSAID); Z98.890 Other specified postprocedural states; Z98.51 Tubal ligation status; Z98.891 History of uterine scar from previous surgery; Z80.3 Family history of malignant neoplasm of breast
CPT/HCPCS: 64635; 64636 ×3; 99199; A9270; J0690; J2003; J2250; J2405; J2704; J3010; J7120

== ENCOUNTER 2025-03-08 15:22 | Emergency (ER) | payer BC, SELFPAY ==
[2025-03-08 15:36] VITALS: BP 122/87; PULSE 89; RESP 16; TEMP 36.4; O2SAT 100
--- NOTE | 2025-03-08 17:04 | ED_ITS ---
HPI - General Adult General Chief complaint: Upper Respiratory Infection Stated complaint: SINUS DRAINAGE Source: patient Mode of arrival: ambulatory Limitations: no limitations History of Present Illness HPI narrative: Pt presents for evaluation of sinus symptoms. Symptom onset four days ago. She reports thick green nasal drainage. The week prior she had congestion without drainage. No fever, chills, nausea, vomiting, diarrhea, cough or SOB. No recent sick contacts to her knowledge. She does not smoke. Related Data Home Medications ?Medication ?Instructions ?Recorded ?Confirmed ?Last Taken ?Type cholecalciferol (vitamin D3) 25 25 mcg PO DAILY 06/21/23 03/08/25 12/06/24 History mcg (1,000 unit) capsule melatonin 5 mg capsule 5 mg PO HS 06/21/23 03/08/25 12/11/24 History Allergies Allergy/AdvReac Type Severity Reaction Status Date / Time sulfamethoxazole Allergy Mild Hives Verified 03/08/25 15:45 trimethoprim Allergy Mild Hives Verified 03/08/25 15:45 Sulfa (Sulfonamide Allergy Unknown Hives Verified 03/08/25 15:45 Antibiotics) Review of Systems Review of Systems: CONSTITUTIONAL: Denies fever, chills, or sweats. EYES: Denies visual changes, redness, or discharge. ENT: reports sinus congestion thick green drainage. Denies sore throat or otalgia CARDIOVASCULAR: Denies chest pain, palpitations, or edema. RESPIRATORY: Denies cough or dyspnea. GASTROINTESTINAL: Denies abdominal pain, nausea, vomiting, or diarrhea. GENITOURINARY: Denies dysuria or hematuria. SKIN: Denies rash or itching. MUSCULOSKELETAL: Denies back pain, joint pain, or myalgia. NEUROLOGIC: Denies headache, numbness, dizziness, or weakness. PSYCHIATRIC: Denies anxiety or depression. [facility] Past Medical History Medical History Spondylosis Hypothyroid Left wrist fracture Fibromyalgia PVC (premature ventricular contraction) Surgical History Surgical History [place] teeth extracted History of endometrial ablation (~2003) History of bladder surgery (~2003) A & P repair Previous section (~1991) H/O tubal ligation (~1998) Family History Family History Mother Hypertension Sibling Hypertension Family history of malignant neoplasm of breast in first degree relative Father Family history of human immunodeficiency virus infection, Onset Age: 52 Patient's father is Grandparent Diabetes mellitus Social History Social History Smoking status: Never smoker Alcohol intake: current Alcohol use details: during holidays a glass of wine Substance use: never Substance use type: does not use Do You Feel Safe in your Home?: Yes Lack of Transportation: No Lack of Food: Never True Current Housing: I Have Housing Concerned About Future Housing: No Difficulty Paying Gas/Electric Bills: No Difficulty Paying for Meds: No Currently Unemployed: No Education: Bachelor's Degree Difficulty w/ Childcare or Family Care: No Living arrangements: with family Additional living arrangements comments: with sp 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 Gender identity (if verbalized by the patient): Female Sexual Orientation (if Verbalized by the Patient): Straight or Heterosexual Spiritual care concerns: No Exam Narrative: GENERAL: Well-appearing, well-nourished, and in no acute distress. HEAD: Normocephalic, atraumatic. EYES: PERRLA and EOMI. ENT: Nares clear, no rhinorrhea or epistaxis. Mucous membranes moist. Oropharynx without tonsillar hypertrophy exudate or other lesions. Bilateral TMs pearly stevens nonbulging NECK: Supple. No adenopathy or masses. No carotid bruits or JVD CHEST: Clear to auscultation. No respiratory distress. No wheezes rales or rhonchi HEART: Regular rate and rhythm. No murmur heard. Normal peripheral pulses. ABDOMEN: Soft, nontender, nondistended, normal active bowel sounds. EXTREMITIES: Normal range of motion. No edema. SKIN: Warm, dry, no rash. NEURO: No focal deficits. Alert and oriented x3. PSYCH: Normal mood and affect. Course Course Emergency Course: This is a 59-year-old female who presented for evaluation of sinus symptoms. She meets criteria for ABRS based upon mucopurulent nature of her discharge. Will discharge with Augmentin. [id number] agents for symptom management. Follow up primary provider. Go to the ER for worsening symptoms. Patient in agreement with plan of care. Level of Care: Express Care Visit Vital Signs Vital signs: Vital Signs Temperature 36.4 C L 03/08/25 15:36 Pulse Rate 89 03/08/25 15:36 Respiratory Rate 16 03/08/25 15:36 Blood Pressure 122/87 03/08/25 15:36 Pulse Oximetry 100 03/08/25 15:36 Temperature 36.4 C L 03/08/25 15:36 Pulse Rate 89 03/08/25 15:36 Respiratory Rate 16 03/08/25 15:36 Blood Pressure 122/87 03/08/25 15:36 Pulse Oximetry 100 03/08/25 15:36 Medical Decision Making Vital Signs Vital Signs: Vital Signs Temperature 36.4 C L 03/08/25 15:36 Pulse Rate 89 03/08/25 15:36 Respiratory Rate 16 03/08/25 15:36 Blood Pressure 122/87 03/08/25 15:36 Pulse Oximetry 100 03/08/25 15:36 Temperature 36.4 C L 03/08/25 15:36 Pulse Rate 89 03/08/25 15:36 Respiratory Rate 16 03/08/25 15:36 Blood Pressure 122/87 03/08/25 15:36 Pulse Oximetry 100 03/08/25 15:36 Discharge Plan Discharge Clinical Impression: Sinusitis Patient Disposition: Home Condition: Stable Instructions: Antibiotic Form, Sinusitis (ED) Patient Language: Croatian Prescriptions: New amoxicillin-pot clavulanate 875-125 mg tablet 1 tablet PO Q12H Qty: 20 0RF No Action Dream Cream Testosterone 1% See Rx Instructions .ROUTE .COMPLEX Qty: 30 0RF Rx Instructions: Dream Cream (Arginine 6%, Sildenafil 2%, Testosterone 1%) Apply pea size amount to clitoris 15-20 minute prior to intercourse. levothyroxine [Synthroid] 75 mcg tablet 75 mcg PO DAILY Qty: 60 0RF melatonin 5 mg capsule 5 mg PO HS cholecalciferol (vitamin D3) 25 mcg (1,000 unit) capsule 25 mcg PO DAILY bupropion HCl 300 mg tablet extended release 24 hr See Rx Instructions .ROUTE .COMPLEX Qty: 90 1RF Dose Instruction: TAKE 1 TABLET BY MOUTH IN THE MORNING Rx Instructions: TAKE 1 TABLET BY MOUTH IN THE MORNING naltrexone 4.5 mg capsule See Rx Instructions .ROUTE .COMPLEX Qty: 30 2RF Dose Instruction: TAKE ONE CAPSULE BY MOUTH EVERY DAY Rx Instructions: TAKE ONE CAPSULE BY MOUTH EVERY DAY naproxen 500 mg tablet 500 mg PO BID PRN (Reason: pain) Qty: 180 1RF topiramate 25 mg tablet 25 mg PO Q12H Qty: 60 2RF Rx Instructions: take 1 tab p.o. q.12 hours. tizanidine 4 mg capsule See Rx Instructions .ROUTE .COMPLEX Qty: 30 0RF Dose Instruction: TAKE 1 CAPSULE BY MOUTH AT BEDTIME NEEDED Rx Instructions: TAKE 1 CAPSULE BY MOUTH AT BEDTIME NEEDED Follow-up/Referrals: Beba Salas [employer] [Primary Care Provider] - Time of Disposition: 16:50
== END 2025-03-08 16:56 | disposition home or self-care (01) ==
PROVIDERS: Emergency Provider Nurse Practitioner; PCP Nurse Practitioner
DX: J32.9 Chronic sinusitis, unspecified (principal); E03.9 Hypothyroidism, unspecified; M79.7 Fibromyalgia
CPT/HCPCS: 99213; G0463

== ENCOUNTER 2025-03-14 15:32 | Outpatient (CLI) | payer BC, SELFPAY ==
--- NOTE | ~2025-03-14 | XR_ITS ---
XR knee RT 3V 03/14/2025 16:23 INDICATION: Right knee pain PROCEDURE: 3 views right knee COMPARISON: No prior studies for comparison. FINDINGS: Fracture, dislocation or subluxation is not identified. The soft tissues appear within norm al limits. No foreign bodies are identified. IMPRESSION: 1: NO ACUTE BONE OR JOINT ABNORMALITY IDENTIFIED. Reviewed, dictated and finalized at location A.
== END 2025-03-14 15:33 | disposition home or self-care (01) ==
LOC: GOSHIMG 15:33
PROVIDERS: PCP Nurse Practitioner; Visit Provider Nurse Practitioner
DX: M25.561 Pain in right knee (principal)
CPT/HCPCS: 73562

== ENCOUNTER 2025-03-29 13:29 | Outpatient (CLI) | payer BC, SELFPAY ==
--- NOTE | ~2025-03-29 | MM_ITS ---
EXAMINATION: MM screening shlomo BI w rin HISTORY: Screening TECHNIQUE: Craniocaudal and mediolateral oblique 3-D tomosynthesis images were obtained and synthetic 2-D images were generated. CAD analysis was submitted and interpreted. COMPARISON: Comparison to multiple prior studies sequentially, with oldest reviewed study dated 04/2012. BREAST PARENCHYMAL COMPOSITION: Not dense: There are scattered areas of fibroglandular density. FINDINGS: There is no evidence of suspicious mass, calcification, or architectural distortion to sugg est malignancy in either breast. There has been no suspicious interval change. IMPRESSION: 1. No mammographic evidence of malignancy. 2. Recommend routine screening mammography in one year. BI-RADS Category 1: Negative Reviewed, dictated and finalized at location A.
== END 2025-03-29 13:30 | disposition home or self-care (01) ==
LOC: MICIMG 13:29
PROVIDERS: PCP Nurse Practitioner; Visit Provider Nurse Practitioner Family
DX: Z12.31 Encounter for screening mammogram for malignant neoplasm of breast (principal)
CPT/HCPCS: 77063; 77067

== ENCOUNTER 2025-04-29 12:26 | Outpatient (CLI) | payer BC, SELFPAY ==
--- NOTE | ~2025-04-29 | MR_ITS ---
MRI of the lumbar spine Clinical History: Back pain Technique: Axial T2-weighted images, and sagittal T1-weighted, T2-weighted, and T2 fat-sat images wer e acquired. Findings: There is no fracture or sublocation of the lumbar spine. Vertebral bodies maintain normal h eight. At L1-L2, there is no disc bulge or herniation. No spinal canal stenosis, cord compression, or neural foraminal narrowing. At L2-L3, there is no disc bulge or herniation. There is moderate facet hypertrophy. No spinal canal stenosis or neural foraminal narrowing. At L3-L4, there is minimal disc bulge with moderate facet arthropathy. No central canal stenosis or n eural foraminal narrowing. At L4-L5, there is mild diffuse disc bulge with moderate facet arthropathy. No central canal stenosis . There is mild right neural foraminal narrowing. Left neural foramen preserved. At L5-S1, there is no disc bulge or herniation. There is mild facet arthropathy. No central canal steve nosis or neural foraminal narrowing. Paravertebral soft tissues are unremarkable. Impression: Mild degenerative spondylosis overall, as above. Reviewed, dictated and finalized at location . Impression: Mild degenerative spondylosis overall, as above.
== END 2025-04-29 12:27 | disposition home or self-care (01) ==
PROVIDERS: PCP Nurse Practitioner; Visit Provider Nurse Practitioner Adult Health
DX: M47.816 Spondylosis without myelopathy or radiculopathy, lumbar region (principal)
CPT/HCPCS: 72148